=== PATIENT | male | born 1975 | race Hispanic/Latino ===

== ENCOUNTER 2016-08-14 10:19 | Inpatient (IN) | payer OTHER ==
[2016-08-14 11:13] LABS: Hematocrit 49.7 % (35.5-45.6); Hemoglobin 17.5 gm/dl (11.8-15.2); Mean Corpuscular HGB Conc 35 % (32-34); Mean Corpuscular Hemoglobin 32 pg (28-32); Mean Corpuscular Volume 91 fl (84-94); Platelet Count 236 K/mm3 (140-440); Red Blood Count 5.47 M/mm3 (3.65-5.03); Red Cell Distribution Width 13.2 % (13.2-15.2); White Blood Count 21.1 K/mm3 (4.5-11.0)
[2016-08-14 11:26] LABS: Alanine Aminotransferase 56 units/L (7-56); Albumin 4.6 g/dL (3.9-5); Albumin/Globulin Ratio 1.6 %; Alkaline Phosphatase 119 units/L (35-129); Anion Gap 25 mmol/L; BUN/Creatinine Ratio 15.71; Bilirubin,Total 1.2 mg/dL (0.1-1.2); Blood Urea Nitrogen 11 mg/dL (9-20); Calcium 9.4 mg/dL (8.4-10.2); Carbon Dioxide 20 mmol/L (22-30); Glucose 322 mg/dL (75-100); Sodium 137 mmol/L (137-145); Total Protein 7.4 g/dL (6.3-8.2)
[2016-08-14] MEDS ORDERED: MORPHINE IV ONE (11:31)
[2016-08-14] MEDS ORDERED: NACL 0.9% 1000 ML 1,000 ML IV ONE ×3 (11:31→12:59)
[2016-08-14] MEDS ORDERED: ZOFRAN IV ONE (11:35)
--- NOTE | 2016-08-14 11:37 | Emergency Department Report ---
HPI - General Chief Complaint: Abdominal Pain Time Seen by Provider: 08/14/16 11:30 - HPI HPI: This is a 41-year-old male who presents emergency department from home with complaint of left lower quadrant and left-sided abdominal pain has been going on since around 7 AM. The pain is 10 out of 10 in intensity. It is associated with some nausea and vomiting. He has also been having some mild diarrhea. He denies any fever, back pain, dysuria, discharge. The patient has a history of [id number] diabetes and diverticulosis. The patient had some of the symptoms a few days ago and supposedly had a CT of the abdomen and pelvis that was diverticulosis without diverticulitis. His primary care doctor is Dr. Eugene Howard. He just briefly saw a GI doctor for the first time but cannot currently remember the name. No recent travel or sick contacts at home. ED Past Medical Hx - Past Medical History Hx Diabetes: Yes Additional medical history: Diverticulosis - Surgical History Past Surgical History?: No - Social History Smoking Status: Current Every Day Smoker Substance Use Type: None - Medications Home Medications: Home Medications Medication Instructions Recorded Confirmed Last Taken Type Acetaminophen/Codeine [Tylenol 1 tab PO Q6H PRN 08/14/16 08/14/16 08/07/16 History /Codeine # 3 tab] 1 tablet Glipizide/Metformin HCl 1 tab PO BIDAC 08/14/16 08/14/16 08/14/16 History [glipiZIDE-Metformin 5-500 mg] 1 tablet Lisinopril [Zestril TAB] 1 tab PO QHS 08/14/16 08/14/16 08/14/16 History 2.5 Saccharomyces Boulardii [Florastor] 1 cap PO QAM&QHS 08/14/16 08/14/16 08/14/16 History 1cap Simvastatin [Zocor TAB] 20 mg PO QHS 08/14/16 08/14/16 08/13/16 History ED Review of Systems ROS: Stated complaint: ABD PAIN Other details as noted in HPI Comment: All other systems reviewed and negative Constitutional: denies: chills, fever Eyes: denies: eye pain, eye discharge, vision change ENT: denies: ear pain, throat pain Respiratory: denies: cough, shortness of breath, wheezing Cardiovascular: denies: chest pain, palpitations Gastrointestinal: abdominal pain, nausea, vomiting Genitourinary: denies: urgency, dysuria Musculoskeletal: denies: back pain, joint swelling, arthralgia Skin: denies: rash, lesions Neurological: denies: headache, weakness, paresthesias Physical Exam - Physical Exam Vital Signs: Vital Signs 08/14/16 10:39 Temperature 97.7 F Pulse Rate 105 H Respiratory 22 Rate Blood Pressure 125/52 O2 Sat by Pulse 98 Oximetry Physical Exam: GENERAL: The patient is well-developed well-nourished. HEENT: Normocephalic. Atraumatic. Extraocular motions are intact. Patient has moist mucous membranes. Pupils equal reactive to light bilaterally. NECK: Supple. Trachea is midline. CHEST/LUNGS: Clear to auscultation. There is no respiratory distress noted. HEART/CARDIOVASCULAR: Regular. There is no tachycardia. There is no gallop rub or murmur. ABDOMEN: Abdomen is soft there is generalized tenderness to palpation of the abdomen but it appears to be worst in the left upper and left lower quadrants. There is mild guarding but no rebound tenderness. Patient has normal bowel sounds. There is no abdominal distention. SKIN: Skin is warm and dry. NEURO: The patient is awake, alert, and oriented. The patient is cooperative. The patient has no focal neurologic deficits. The patient has normal speech. MUSCULOSKELETAL: There is no tenderness or deformity. There is no limitation range of motion. There is no evidence of acute injury. ED Course Vital Signs 08/14/16 10:39 Temperature 97.7 F Pulse Rate 105 H Respiratory 22 Rate Blood Pressure 125/52 O2 Sat by Pulse 98 Oximetry ED Medical Decision Making - Lab Data Result diagrams: 08/14/16 10:50 08/14/16 10:50 - Radiology Data Radiology results: report reviewed, image reviewed interpreted by me: Abdominal x-ray does not show any acute process. CT of the abdomen and pelvis with IV contrast shows acute pancreatitis. Subtle diffuse hepatic infiltration suspected. Mild. Pancreatic fat stranding with small hypodense fluid along the anterior perirenal fascia extended to the lateral fascia. - Medical Decision Making 41-year-old male presents emergency Department with abdominal pain, nausea vomiting that began this morning. Patient had some recent similar symptoms and was diagnosed with diverticulosis without diverticulitis. Patient's labs show a 22,000 white count. Vitals are stable including being afebrile. Lipase elevated at 1500. Abdominal x-ray does not show any acute process. However CT of the abdomen and pelvis shows acute pancreatitis. Patient given pain control , IV fluid and started on some antibiotics. Will be admitted to hospital. - Differential Diagnosis pancreatitis, diverticulitis, abscess, colitis Critical Care Time: No Critical care attestation.: If time is entered above; I have spent that time in minutes in the direct care of this critically ill patient, excluding procedure time. ED Disposition Clinical Impression: Abdominal pain Qualifiers: Abdominal location: generalized Qualified Code(s): R10.84 - Generalized abdominal pain Nausea & vomiting Qualifiers: Vomiting type: unspecified Vomiting Intractability: non-intractable Qualified Code(s): R11.2 - Nausea with vomiting, unspecified Pancreatitis Qualifiers: Chronicity: acute Pancreatitis type: unspecified pancreatitis type Acute pancreatitis complication: unspecified Qualified Code(s): K85.90 - Acute pancreatitis without necrosis or infection, unspecified Leukocytosis Qualifiers: Leukocytosis type: unspecified Qualified Code(s): D72.829 - Elevated white blood cell count, unspecified Disposition: OP ADMITTED IP TO THIS HOSP Is pt being admited?: Yes Condition: Stable Referrals: PRIMARY CARE, [Primary Care Provider] - 3-5 Days Time of Disposition: 12:42
[2016-08-14] MEDS ORDERED: DILAUDID IV ONE (11:55)
--- NOTE | 2016-08-14 12:12 | XRay Report ---
ABDOMEN RADIOGRAPHS INDICATION: Abdominal pain. COMPARISON: None similar. FINDINGS: Frontal abdominal radiographs demonstrate nonobstructive bowel gas pattern. No focal suspicious calcifications, pneumatosis or pneumoperitoneum. Clear visualized lung bases. Unremarkable bones. CONCLUSION: Normal abdominal radiograph, as described. Thank you for the opportunity to participate in this patient's care.
[2016-08-14 12:21] LABS: Lipase 1420 units/L (13-60)
--- NOTE | 2016-08-14 12:33 | Cat Scan Report ---
CT ABDOMEN AND PELVIS WITH CONTRAST INDICATION: Abdominal pain. Evaluate for diverticulitis. COMPARISON: None similar. FINDINGS: Abdomen and pelvis CT performed following intravenous administration of 100 cc of Omnipaque 300. LUNG BASES: Slight air-filled prominence of the distal esophagus. Right hemidiaphragm slightly elevated. ABDOMEN: Subtle diffuse hepatic infiltration suspected. Mild peripancreatic fat stranding with small hypodense fluid along the anterior pararenal fascia extending to the lateroconal fascia noted. Approximately 2.1 cm presumed splenule in the left upper quadrant, axial image 101, series 2. Otherwise unremarkable liver, spleen, gallbladder, pancreas, adrenals, nonaneurysmal abdominal aorta with few atherosclerotic calcifications, IVC, kidneys and nonobstructive non-opacified bowel. PELVIS: Small prostatic calcifications. Grossly unremarkable seminal vesicles and non-opacified urinary bladder and the rectosigmoid. No free fluid or significant adenopathy. Fat-containing 1.8 cm left inguinal hernia proximally, axial image 371. Unremarkable bones. CONCLUSION: Acute pancreatitis and few other findings, as described. Thank you for the opportunity to participate in this patient's care.
[2016-08-14] MEDS ORDERED: ZOSYN/NS 4.5GM/100ML 4.5 GM/100 ML VIAL IV ONE (12:43)
[2016-08-14 12:49] LABS: Basophils % (Manual) 0 % (0.0-1.8); Blastocytes % (Manual) 0 %; Eosinophils % (Manual) 0 % (0.0-4.3)
[2016-08-14 12:50] LABS: Diff Status Complete; Platelet Estimate Consistent w Auto
--- NOTE | 2016-08-14 12:50 | Admit Criteria Form ---
Admission Criteria Documentation: PANCREATITIS Clinical Indications for Admission to Inpatient Care (Place 'X' for any and all applicable criteria): Admission is indicated for 1 or more of the following (1)(2)(3)(4): [X ]I. Acute pancreatitis[A] as indicated by 2 or MORE of the following: [ X]a) Abdominal pain (eg, epigastric, left upper quadrant) [ X]b) Serum amylase or serum lipase greater than 3 times the upper limit of normal [ ]c) Characteristic findings from abdominal imaging (eg, pancreatic inflammation, pancreatic necrosis, peripancreatic fluid collection)[B] [ ]II. Pancreatitis (acute or chronic ) requiring inpatient care as indicated by 1 or more of the following [ ]a) Inability to maintain oral hydration Hypoxemia [ ]b) Evidence of infection (eg, fever, peripancreatic abscess) [ ]c) Severe pain requiring acute inpatient management [ ]d) Hemodynamic instability [ ]e) Hypoxemia [ ]f) Acute renal failure [ ]g) Severe electrolyte abnormalities Extended stay beyond goal length of stay may be needed for (1)(11) [ ]a) Severe acute pancreatitis (10)(19) [ ]b) Persistent symptoms, ascites, or pleural effusion [ ]c) Abdominal compartment syndrome (10) [ ]d) Late complications [ ]e) Gallstones in gallbladder [ ]f) Acute renal failure (27) The original [employer] content created by [employer] has been revised. The portions of the content which have been revised are identified through the use of italic text or in bold,and [facility] has neither reviewed nor approved the modified material.All other unmodified content is copyright [employer]. Please see references footnoted in the original [employer] edition 2016 Admission Criteria Met: Yes
--- NOTE | 2016-08-14 12:56 | History and Physical Report ---
History of Present Illness Chief complaint: My stomach hurts History of present illness: 41 YO Male with DM, Diverticulosis, Nicotine Dependence presents to ED for evaluation. Pt states that he has experienced left-sided abdominal pain for the past day with worsening symptoms since 0700 hrs. Pt states that the pain is 10/ 10, Constant, nonradiating, Not relieved with rest, or worse with movement, is associated with nausea and vomiting, and two loose stools. Pt denies fever, chills, CP, Palpitations, drug use, medication noncompliance, BRBPR, Hematemesis , trauma, or recent ill contacts. Past History Past Medical History: diabetes, hypertension Past Surgical History: No surgical history, Other (reviewed) Social history: , smoking. denies: alcohol abuse, prescription drug abuse Family history: diabetes, hypertension Medications and Allergies Allergies Allergy/AdvReac Type Severity Reaction Status Date / Time No Known Allergies Allergy Unverified 08/14/16 10:39 Home Medications Medication Instructions Recorded Confirmed Last Taken Type Acetaminophen/Codeine [Tylenol 1 tab PO Q6H PRN 08/14/16 08/14/16 08/07/16 History /Codeine # 3 tab] 1 tablet Glipizide/Metformin HCl 1 tab PO BIDAC 08/14/16 08/14/16 08/14/16 History [glipiZIDE-Metformin 5-500 mg] 1 tablet Lisinopril [Zestril TAB] 1 tab PO QHS 08/14/16 08/14/16 08/14/16 History 2.5 Saccharomyces Boulardii [Florastor] 1 cap PO QAM&QHS 08/14/16 08/14/16 08/14/16 History 1cap Simvastatin [Zocor TAB] 20 mg PO QHS 08/14/16 08/14/16 08/13/16 History Active Meds: Active Medications Piperacillin Sod/Tazobactam Sod (Zosyn/Ns 4.5gm/100ml) 4.5 gm in 100 mls @ 200 mls/hr IV ONCE ONE Stop: 08/14/16 13:12 Sodium Chloride (Nacl 0.9% 1000 Ml) 1,000 mls @ 999 mls/hr IV BOLUS ONE Stop: 08/14/16 13:48 Review of Systems All systems: negative Gastrointestinal: abdominal pain, nausea, vomiting, diarrhea Exam - Constitutional Vitals: Temp Pulse Resp BP Pulse Ox 97.7 F 105 H 22 169/126 99 08/14/16 10:39 08/14/16 10:39 08/14/16 11:35 08/14/16 11:15 08/14/16 11:15 General appearance: Present: mild distress, well-nourished - EENT Eyes: Present: PERRL ENT: hearing intact, clear oral mucosa - Neck Neck: Present: supple, normal ROM - Respiratory Respiratory effort: normal Respiratory: bilateral: CTA - Cardiovascular Heart Sounds: Present: S1 & S2. Absent: rub, click - Extremities Extremities: pulses symmetrical, No edema Peripheral Pulses: within normal limits - Abdominal General gastrointestinal: Present: soft, non-tender, non-distended, normal bowel sounds Male genitourinary: Present: normal - Integumentary Integumentary: Present: clear, warm, dry - Musculoskeletal Musculoskeletal: gait normal, strength equal bilaterally - Psychiatric Psychiatric: appropriate mood/affect, intact judgment & insight - Neurologic Neurologic: CNII-XII intact, moves all extremities Results - Labs CBC & Chem 7: 08/14/16 10:50 08/14/16 10:50 Labs: Abnormal lab results 08/14/16 08/14/16 08/14/16 Range/Units 10:49 10:50 10:50 WBC 21.1 H (4.5-11.0) K/mm3 RBC 5.47 H (3.65-5.03) M/mm3 Hgb 17.5 H (11.8-15.2) gm/dl Hct 49.7 H (35.5-45.6) % MCHC 35 H (32-34) % Seg Neuts % (Manual) 84.0 H (40.0-70.0) % Lymphocytes % (Manual) 10.0 L (13.4-35.0) % Seg Neutrophils # Man 17.7 H (1.8-7.7) K/mm3 Monocytes # (Manual) 1.3 H (0.0-0.8) K/mm3 Chloride 96.0 L (98-107) mmol/L Carbon Dioxide 20 L (22-30) mmol/L Creatinine 0.7 L (0.8-1.5) mg/dL Glucose 322 H (75-100) mg/dL POC Glucose 282 H (70-105) Lipase 1420 H (13-60) units/L 08/14/16 Range/Units 12:45 WBC (4.5-11.0) K/mm3 RBC (3.65-5.03) M/mm3 Hgb (11.8-15.2) gm/dl Hct (35.5-45.6) % MCHC (32-34) % Seg Neuts % (Manual) (40.0-70.0) % Lymphocytes % (Manual) (13.4-35.0) % Seg Neutrophils # Man (1.8-7.7) K/mm3 Monocytes # (Manual) (0.0-0.8) K/mm3 Chloride (98-107) mmol/L Carbon Dioxide (22-30) mmol/L Creatinine (0.8-1.5) mg/dL Glucose (75-100) mg/dL POC Glucose 284 H (70-105) Lipase (13-60) units/L Assessment and Plan - Patient Problems (1) Sepsis Current Visit: Yes Status: Acute Qualifiers: Sepsis type: S Plan to address problem: IV abx, IVF, supportive care, serial lactate levels, treat acute pancreatitis. (2) Pancreatitis Current Visit: Yes Status: Acute Qualifiers: Chronicity: acute Pancreatitis type: unspecified pancreatitis type Acute pancreatitis complication: unspecified Qualified Code(s): K85.90 - Acute pancreatitis without necrosis or infection, unspecified Plan to address problem: Bowel rest, IVF, supportive care, monitor uop q shift, pain control CTSI: 5, Moderate Acute Pancreatitis, (3) Nicotine dependence Current Visit: Yes Status: Acute Qualifiers: Nicotine product type: N Substance use status: S Plan to address problem: Pt counseled, Pt refused to pick quit date. (4) Diabetes Current Visit: Yes Status: Acute Qualifiers: Diabetes mellitus type: D Diabetes mellitus complication status: D Diabetes mellitus complication detail: D Diabetic retinopathy severity: D Proliferative retinopathy type: P Diabetes mellitus macular edema: D Diabetes mellitus snf insulin use: D Laterality: L Chronic kidney disease stage: C Plan to address problem: ADA diet, insulin, accu check (5) DVT prophylaxis Current Visit: Yes Status: Acute
[2016-08-14] MEDS ORDERED: DULCOLAX PR PRN (12:59)
[2016-08-14] MEDS ORDERED: MILK OF MAGNESIA PO PRN (12:59)
[2016-08-14] MEDS ORDERED: NACL 0.9% 1000 ML IV ONE (12:59)
[2016-08-14] MEDS ORDERED: ZOFRAN IV PRN (12:59)
[2016-08-14] MEDS ORDERED: DUONEB 0.5 MG-3 MG/3 ML SOLN IH PRN (12:59)
[2016-08-14] MEDS ORDERED: TYLENOL PO PRN (12:59)
[2016-08-14] MEDS ORDERED: VANCOMYCIN/NS 1 GM/250 ML 1 GM/250 ML BAG IV ONE ×2 (13:02→20:00)
[2016-08-14] MEDS ORDERED: SACCHAROMYCES BOULARDII PO SCH (13:15)
[2016-08-14] MEDS ORDERED: ZOFRAN ONE (13:38)
[2016-08-14] MEDS ORDERED: MORPHINE ONE (13:39)
[2016-08-14 13:47] LABS: Bilirubin,Urine NEG (Negative); Blood,Urine NEG (Negative); Ketones,Urine 20 mg/dL (Negative); Leukocyte Esterase,Urine NEG (Negative); Mucus,Urine FEW /HPF; Nitrite,Urine NEG (Negative); Protein,Urine <15 mg/dL mg/dL (Negative); Urobilinogen,Urine < 2.0 mg/dL (<2.0); WBC,Urine < 1.0 /HPF (0.0-6.0)
[2016-08-14] MEDS: MORPHINE IV PRN ×3 (14:14→21:04)
[2016-08-14] MEDS ORDERED: NACL 0.9% 1000 ML 1,000 ML ONE (14:15)
[2016-08-14] MEDS: ZOSYN/NS 4.5GM/100ML 4.5 GM/100 ML VIAL IV SCH (17:26)
[2016-08-14] MEDS: ZOFRAN IV PRN (21:04)
[2016-08-14] MEDS ORDERED: LISINOPRIL PO SCH (22:00)
[2016-08-15] MEDS: FLORANEX PO SCH ×2 (00:20→11:06)
[2016-08-15] MEDS: ZESTRIL PO SCH (00:24)
[2016-08-15] MEDS: ZOCOR PO SCH (00:25)
[2016-08-15] MEDS: MORPHINE IV PRN ×6 (00:48→22:56)
[2016-08-15] MEDS: ZOSYN/NS 4.5GM/100ML 4.5 GM/100 ML VIAL IV SCH ×5 (00:50→23:03)
[2016-08-15] MEDS: NACL 0.9% IV SCH ×2 (00:53→23:06)
[2016-08-15] MEDS: ZOFRAN IV PRN ×4 (02:10→23:01)
[2016-08-15 05:45] LABS: Basophils % (Auto) 0.2 % (0.0-1.8); Eosinophils % (Auto) 0.1 % (0.0-4.3); Hematocrit 44.9 % (35.5-45.6); Hemoglobin 15.6 gm/dl (11.8-15.2); Mean Corpuscular HGB Conc 35 % (32-34); Mean Corpuscular Hemoglobin 32 pg (28-32); Mean Corpuscular Volume 91 fl (84-94); Platelet Count 159 K/mm3 (140-440); Red Blood Count 4.94 M/mm3 (3.65-5.03); Red Cell Distribution Width 13.2 % (13.2-15.2); White Blood Count 13.9 K/mm3 (4.5-11.0)
[2016-08-15 06:16] LABS: Alanine Aminotransferase 35 units/L (7-56); Albumin 3.7 g/dL (3.9-5); Albumin/Globulin Ratio 1.5 %; Alkaline Phosphatase 87 units/L (35-129); Anion Gap 18 mmol/L; Bilirubin,Total 1.8 mg/dL (0.1-1.2); Blood Urea Nitrogen 9 mg/dL (9-20); Calcium 8.1 mg/dL (8.4-10.2); Carbon Dioxide 23 mmol/L (22-30); Chloride 102.5 mmol/L (98-107); Glucose 209 mg/dL (75-100); Potassium 3.9 mmol/L (3.6-5.0); Sodium 140 mmol/L (137-145); Total Protein 6.1 g/dL (6.3-8.2)
--- NOTE | 2016-08-15 09:59 | Progress Note ---
Assessment and Plan Assessment and plan: Sepsis. Patient meets criteria given the elevated lactic acid and leukocytosis. Continue IV antibiotics, IV fluid and supportive care. Follow blood cultures and trend lactic acid levels. Acute pancreatitis. Continue bowel rest, IV fluid hydration and supportive care. GI consultation. Trend lipase levels. Diabetes mellitus type 2. Continue Accu-Cheks and sliding scale insulin. Nicotine dependence. Patient has been counseled. DVT prophylaxis. History Interval history: Patient with some nausea and vomiting this morning. Also, patient was noted to have moderate epigastric pain with no significant improvement. Hospitalist Physical - Constitutional Vitals: Temp Pulse Resp BP Pulse Ox 99.0 F 73 18 158/83 96 08/15/16 08:00 08/15/16 08:00 08/15/16 08:00 08/15/16 08:00 08/15/16 09:10 General appearance: Present: mild distress, well-nourished - EENT Eyes: Present: PERRL, EOM intact ENT: hearing intact, clear oral mucosa, dentition normal - Neck Neck: Present: supple, normal ROM - Respiratory Respiratory effort: normal Respiratory: bilateral: CTA - Cardiovascular Rhythm: regular Heart Sounds: Present: S1 & S2. Absent: gallop, rub - Extremities Extremities: no ischemia, No edema, Full ROM - Abdominal General gastrointestinal: soft, non-tender, non-distended, normal bowel sounds Localized gastrointestinal: tender: epigastric periumbilical (moderate) - Integumentary Integumentary: Present: clear, warm, dry - Neurologic Neurologic: CNII-XII intact, moves all extremities Results - Labs CBC & Chem 7: 08/15/16 05:02 08/15/16 05:02 Labs: Laboratory Last Values WBC 13.9 K/mm3 (4.5-11.0) H 08/15/16 05:02 RBC 4.94 M/mm3 (3.65-5.03) 08/15/16 05:02 Hgb 15.6 gm/dl (11.8-15.2) H 08/15/16 05:02 Hct 44.9 % (35.5-45.6) 08/15/16 05:02 MCV 91 fl (84-94) 08/15/16 05:02 MCH 32 pg (28-32) 08/15/16 05:02 MCHC 35 % (32-34) H 08/15/16 05:02 RDW 13.2 % (13.2-15.2) 08/15/16 05:02 Plt Count 159 K/mm3 (140-440) 08/15/16 05:02 Lymph % (Auto) 6.5 % (13.4-35.0) L 08/15/16 05:02 [place] % (Auto) 6.3 % (0.0-7.3) 08/15/16 05:02 Eos % (Auto) 0.1 % (0.0-4.3) 08/15/16 05:02 Baso % (Auto) 0.2 % (0.0-1.8) 08/15/16 05:02 Lymph # 0.9 K/mm3 (1.2-5.4) L 08/15/16 05:02 [place] # 0.9 K/mm3 (0.0-0.8) H 08/15/16 05:02 Eos # 0.0 K/mm3 (0.0-0.4) 08/15/16 05:02 Baso # 0.0 K/mm3 (0.0-0.1) 08/15/16 05:02 Add Manual Diff Complete 08/14/16 10:50 Total Counted 100 08/14/16 10:50 Seg Neutrophils % 86.9 % (40.0-70.0) H 08/15/16 05:02 Seg Neuts % (Manual) 84.0 % (40.0-70.0) H 08/14/16 10:50 Band Neutrophils % 0 % 08/14/16 10:50 Lymphocytes % (Manual) 10.0 % (13.4-35.0) L 08/14/16 10:50 Reactive Lymphs % (Man) 0 % 08/14/16 10:50 Monocytes % (Manual) 6.0 % (0.0-7.3) 08/14/16 10:50 Eosinophils % (Manual) 0 % (0.0-4.3) 08/14/16 10:50 Basophils % (Manual) 0 % (0.0-1.8) 08/14/16 10:50 Metamyelocytes % 0 % 08/14/16 10:50 Myelocytes % 0 % 08/14/16 10:50 Promyelocytes % 0 % 08/14/16 10:50 Blast Cells % 0 % 08/14/16 10:50 Nucleated RBC % Not Reportable 08/14/16 10:50 Seg Neutrophils # 12.1 K/mm3 (1.8-7.7) H 08/15/16 05:02 Seg Neutrophils # Man 17.7 K/mm3 (1.8-7.7) H 08/14/16 10:50 Band Neutrophils # 0.0 K/mm3 08/14/16 10:50 Lymphocytes # (Manual) 2.1 K/mm3 (1.2-5.4) 08/14/16 10:50 Abs React Lymphs (Man) 0.0 K/mm3 08/14/16 10:50 Monocytes # (Manual) 1.3 K/mm3 (0.0-0.8) H 08/14/16 10:50 Eosinophils # (Manual) 0.0 K/mm3 (0.0-0.4) 08/14/16 10:50 Basophils # (Manual) 0.0 K/mm3 (0.0-0.1) 08/14/16 10:50 Metamyelocytes # 0.0 K/mm3 08/14/16 10:50 Myelocytes # 0.0 K/mm3 08/14/16 10:50 Promyelocytes # 0.0 K/mm3 08/14/16 10:50 Blast Cells # 0.0 K/mm3 08/14/16 10:50 WBC Morphology Not Reportable 08/14/16 10:50 Hypersegmented Neuts Not Reportable 08/14/16 10:50 Hyposegmented Neuts Not Reportable 08/14/16 10:50 Hypogranular Neuts Not Reportable 08/14/16 10:50 Smudge Cells Not Reportable 08/14/16 10:50 Toxic Granulation Not Reportable 08/14/16 10:50 Toxic Vacuolation Not Reportable 08/14/16 10:50 Dohle Bodies Not Reportable 08/14/16 10:50 [place]uet Anomaly Not Reportable 08/14/16 10:50 Konstantin Rods Not Reportable 08/14/16 10:50 Platelet Estimate Consistent w auto 08/14/16 10:50 Clumped Platelets Not Reportable 08/14/16 10:50 Plt Clumps, EDTA Not Reportable 08/14/16 10:50 Large Platelets Not Reportable 08/14/16 10:50 Giant Platelets Not Reportable 08/14/16 10:50 Platelet Satelliting Not Reportable 08/14/16 10:50 Plt Morphology Comment Not Reportable 08/14/16 10:50 RBC Morphology Not Reportable 08/14/16 10:50 Dimorphic RBCs Not Reportable 08/14/16 10:50 Polychromasia Not Reportable 08/14/16 10:50 Hypochromasia Not Reportable 08/14/16 10:50 Poikilocytosis Not Reportable 08/14/16 10:50 Anisocytosis Not Reportable 08/14/16 10:50 Microcytosis Not Reportable 08/14/16 10:50 Macrocytosis Not Reportable 08/14/16 10:50 Spherocytes Not Reportable 08/14/16 10:50 Pappenheimer Bodies Not Reportable 08/14/16 10:50 Sickle Cells Not Reportable 08/14/16 10:50 Target Cells Not Reportable 08/14/16 10:50 Tear Drop Cells Not Reportable 08/14/16 10:50 Ovalocytes Not Reportable 08/14/16 10:50 Helmet Cells Not Reportable 08/14/16 10:50 [place] Bodies Not Reportable 08/14/16 10:50 [place] Rings Not Reportable 08/14/16 10:50 [place] Cells Not Reportable 08/14/16 10:50 Bite Cells Not Reportable 08/14/16 10:50 Crenated Cell Not Reportable 08/14/16 10:50 Elliptocytes Not Reportable 08/14/16 10:50 Acanthocytes (Spur) Not Reportable 08/14/16 10:50 Rouleaux Not Reportable 08/14/16 10:50 Hemoglobin C Crystals Not Reportable 08/14/16 10:50 Schistocytes Not Reportable 08/14/16 10:50 Malaria parasites Not Reportable 08/14/16 10:50 [place] Bodies Not Reportable 08/14/16 10:50 Hem Pathologist Commnt No 08/14/16 10:50 Sodium 140 mmol/L (137-145) 08/15/16 05:02 Potassium 3.9 mmol/L (3.6-5.0) 08/15/16 05:02 Chloride 102.5 mmol/L (98-107) 08/15/16 05:02 Carbon Dioxide 23 mmol/L (22-30) 08/15/16 05:02 Anion Gap 18 mmol/L 08/15/16 05:02 BUN 9 mg/dL (9-20) 08/15/16 05:02 Creatinine 0.6 mg/dL (0.8-1.5) L 08/15/16 05:02 Estimated GFR > 60 ml/min 08/15/16 05:02 BUN/Creatinine Ratio 15.00 % 08/15/16 05:02 Glucose 209 mg/dL (75-100) H 08/15/16 05:02 POC Glucose 171 (70-105) H 08/15/16 05:25 Lactic Acid 2.1 mmol/L (0.7-2.0) H* 08/14/16 16:48 Calcium 8.1 mg/dL (8.4-10.2) L 08/15/16 05:02 Total Bilirubin 1.8 mg/dL (0.1-1.2) H 08/15/16 05:02 AST 18 units/L (5-40) 08/15/16 05:02 ALT 35 units/L (7-56) 08/15/16 05:02 Alkaline Phosphatase 87 units/L (35-129) 08/15/16 05:02 Total Protein 6.1 g/dL (6.3-8.2) L 08/15/16 05:02 Albumin 3.7 g/dL (3.9-5) L 08/15/16 05:02 Albumin/Globulin Ratio 1.5 % 08/15/16 05:02 Lipase 1420 units/L (13-60) H 08/14/16 10:50 Urine Color Yellow (Yellow) 08/14/16 13:32 Urine Turbidity Clear (Clear) 08/14/16 13:32 Urine pH 5.0 (5.0-7.0) 08/14/16 13:32 Ur Specific [place] 1.059 (1.003-1.030) H 08/14/16 13:32 Urine Protein <15 mg/dl mg/dL (Negative) 08/14/16 13:32 Urine Glucose (UA) >=500 mg/dL (Negative) 08/14/16 13:32 Urine Ketones 20 mg/dL (Negative) 08/14/16 13:32 Urine Blood Neg (Negative) 08/14/16 13:32 Urine Nitrite Neg (Negative) 08/14/16 13:32 Urine Bilirubin Neg (Negative) 08/14/16 13:32 Urine Urobilinogen < 2.0 mg/dL (<2.0) 08/14/16 13:32 Ur Leukocyte Esterase Neg (Negative) 08/14/16 13:32 Urine WBC (Auto) < 1.0 /HPF (0.0-6.0) 08/14/16 13:32 Urine RBC (Auto) 4.0 /HPF (0.0-6.0) 08/14/16 13:32 U Epithel Cells (Auto) 1.0 /HPF (0-13.0) 08/14/16 13:32 Urine Mucus Few /HPF 08/14/16 13:32
[2016-08-15] MEDS ORDERED: MORPHINE IV ONE (10:46)
[2016-08-15] MEDS ORDERED: PROVENTIL IH PRN (19:00)
[2016-08-16] MEDS: ZOCOR PO SCH ×2 (00:19→21:37)
[2016-08-16] MEDS: ZESTRIL PO SCH ×2 (00:19→21:42)
[2016-08-16] MEDS: FLORANEX PO SCH ×3 (00:19→21:36)
--- NOTE | 2016-08-16 02:51 | Consultation ---
REFERRING PHYSICIAN: Vasile Lisa MD. INDICATION: Abdominal pain. HISTORY OF PRESENT ILLNESS: The patient is a 41-year-old white male with a history of diabetes, diverticulosis, nicotine dependence, who is being seen by GI for abdominal pain. The patient reports abdominal pain, have been going on for 1-2 weeks, but worse over the last 24 hours associated with fevers, chills, nausea, and vomiting. The patient reports some worsening with eating. He reports no history of problems as in the past. He reports no lower GI symptoms including diarrhea, constipation, or rectal bleeding. The patient subsequently came to Emergency Room, was noted to have an increased lipase and CT scan consistent with pancreatitis. He was subsequently admitted and GI called for evaluation. PAST MEDICAL HISTORY: 1. Diabetes. 2. Hypertension. MEDICATIONS: See chart. ALLERGIES: No known drug allergies. SOCIAL HISTORY: Reports social alcohol. Denies tobacco or IV drug abuse. FAMILY HISTORY: Negative for colon cancer. REVIEW OF SYSTEMS: GENERAL: Reports mild weakness. HEENT: No visual complaints or tinnitus. PULMONARY: No shortness of breath. CARDIOVASCULAR: No chest pain. GASTROINTESTINAL: Reports abdominal pain. All points of 13-point review of systems otherwise negative. PHYSICAL EXAMINATION: VITAL SIGNS: Temperature 98.5, pulse 99, respirations 18, blood pressure 151/89. GENERAL: Fairly nourished male in no acute distress. HEENT: Pupils equal, round, reactive to light and accommodation. Extraocular movements intact. PULMONARY: Clear to auscultation bilaterally. CARDIOVASCULAR: Regular rate and rhythm. Normal S1, S2. ABDOMEN: Positive bowel sounds. Soft. Mild discomfort. No guarding, no rebound. SKIN: No obvious rashes. LABORATORY DATA: Pertinent for white count of 13.9, hemoglobin and hematocrit of 15.6 and 44.9, platelet count of 159. Chem-7 within normal limits. LFTs within normal limits. CT scan shows consistent with mild pancreatitis. ASSESSMENT AND PLAN: A 41-year-old male presents for abdominal pain with noted increased lipase and a CT scan consistent with pancreatitis. The patient denies a history of alcohol abuse. Denies any other risk factors. Management as noted below. PLAN: 1. The patient's pancreatitis management will include IV fluids, pain medications, and antiemetics. 2. Right upper quadrant ultrasound. 3. Pancreatitis related labs including CRP as well as workup for etiologies including lipid panel. 4. Advance diet based on progress. 5. We will follow, further recommendation based on progress. JOB# [id number] CAB/NTS
[2016-08-16] MEDS: MORPHINE IV PRN ×5 (04:22→21:37)
[2016-08-16 04:44] LABS: Basophils % (Auto) 0.1 % (0.0-1.8); Eosinophils % (Auto) 0.1 % (0.0-4.3); Hematocrit 44.5 % (35.5-45.6); Hemoglobin 15.3 gm/dl (11.8-15.2); Mean Corpuscular HGB Conc 34 % (32-34); Mean Corpuscular Hemoglobin 31 pg (28-32); Mean Corpuscular Volume 91 fl (84-94); Platelet Count 142 K/mm3 (140-440); Red Blood Count 4.87 M/mm3 (3.65-5.03); Red Cell Distribution Width 13.2 % (13.2-15.2); White Blood Count 15.7 K/mm3 (4.5-11.0)
[2016-08-16 04:58] LABS: Anion Gap 22 mmol/L; Blood Urea Nitrogen 10 mg/dL (9-20); Calcium 8.1 mg/dL (8.4-10.2); Carbon Dioxide 17 mmol/L (22-30); Chloride 99.6 mmol/L (98-107); Glucose 165 mg/dL (75-100); Potassium 3.7 mmol/L (3.6-5.0); Sodium 135 mmol/L (137-145)
[2016-08-16] MEDS: NACL 0.9% IV SCH ×3 (05:17→21:41)
[2016-08-16] MEDS: ZOSYN/NS 4.5GM/100ML 4.5 GM/100 ML VIAL IV SCH ×3 (05:17→17:32)
[2016-08-16 07:58] LABS: C-Reactive Protein 42.5 mg/dL (0.00-1.30)
--- NOTE | 2016-08-16 09:08 | Ultrasound Report ---
ULTRASOUND ABDOMEN LIMITED INDICATION: Evaluate for gallbladder disease. COMPARISON: 08/14/2016 CT. FINDINGS: Right upper quadrant sonography, somewhat limited due to patient's body habitus and bowel gas, suggests diffusely echogenic liver with grossly preserved contours. No definite focal suspicious lesion or biliary dilatation. No gallstones or pericholecystic fluid. Gallbladder wall thickness is 2 mm. Common bile duct is 5 mm. Minimal ascites surrounds the right hepatic lobe tip inferiorly. Pancreas, abdominal aorta and IVC not well visualized. Nonhydronephrotic right kidney, 10.8 x 5.5 x 6.3 cm with cortical thickness of 1.7 cm. CONCLUSION: Fatty liver and minimal ascites on this technically limited exam in this patient with known acute pancreatitis. Please correlate. Thank you for the opportunity to participate in this patient's care.
--- NOTE | 2016-08-16 11:34 | Gastroenterology Progress Note ---
Assessment and Plan GI: pancreatitis unclear etiology - pt still with pain and given high CRP would not advance diet at this time - await etiology workup including ultrasound - continue conservative management - will follow Subjective Date of service: 08/16/16 Interval history: pt reports abdominal pain and discomfort. Reports overall improved Objective - Constitutional Vitals: Temp Pulse Resp BP Pulse Ox 97.9 F 109 H 20 115/69 95 08/16/16 08:00 08/16/16 08:00 08/16/16 08:00 08/16/16 08:00 08/16/16 08:00 General appearance: no acute distress - Respiratory Respiratory: bilateral: CTA - Cardiovascular Rhythm: regular Heart Sounds: Present: S1 & S2 - Gastrointestinal General gastrointestinal: Present: soft, non-tender, non-distended - Labs CBC & Chem 7: 08/16/16 04:07 08/16/16 04:07 Labs: Laboratory Results - last 24 hr 08/15/16 08/15/16 08/15/16 11:25 19:26 21:23 WBC RBC Hgb Hct MCV MCH MCHC RDW Plt Count Lymph % (Auto) [place] % (Auto) Eos % (Auto) Baso % (Auto) Lymph # [place] # Eos # Baso # Seg Neutrophils % Seg Neutrophils # Sodium Potassium Chloride Carbon Dioxide Anion Gap BUN Creatinine Estimated GFR BUN/Creatinine Ratio Glucose POC Glucose 180 H 152 H 149 H Calcium C-Reactive Protein Lipase 08/16/16 08/16/16 08/16/16 04:07 04:07 06:17 WBC 15.7 H RBC 4.87 Hgb 15.3 H Hct 44.5 MCV 91 MCH 31 MCHC 34 RDW 13.2 Plt Count 142 Lymph % (Auto) 4.6 L [place] % (Auto) 8.3 H Eos % (Auto) 0.1 Baso % (Auto) 0.1 Lymph # 0.7 L [place] # 1.3 H Eos # 0.0 Baso # 0.0 Seg Neutrophils % 86.9 H Seg Neutrophils # 13.7 H Sodium 135 L Potassium 3.7 Chloride 99.6 Carbon Dioxide 17 L Anion Gap 22 BUN 10 Creatinine 0.5 L Estimated GFR > 60 BUN/Creatinine Ratio 20.00 Glucose 165 H POC Glucose 155 H Calcium 8.1 L C-Reactive Protein Lipase 08/16/16 08/16/16 06:37 07:45 WBC RBC Hgb Hct MCV MCH MCHC RDW Plt Count Lymph % (Auto) [place] % (Auto) Eos % (Auto) Baso % (Auto) Lymph # [place] # Eos # Baso # Seg Neutrophils % Seg Neutrophils # Sodium Potassium Chloride Carbon Dioxide Anion Gap BUN Creatinine Estimated GFR BUN/Creatinine Ratio Glucose POC Glucose 177 H Calcium C-Reactive Protein 42.50 H Lipase 101 H
[2016-08-16] MEDS: ZOFRAN IV PRN ×2 (13:01→21:37)
--- NOTE | 2016-08-16 13:32 | Progress Note ---
Assessment and Plan Assessment and plan: Patient is 41-year-old man with a history of tobacco dependency and diabetes mellitus who presented with abdominal pain with nausea vomiting. CT abdomen and pelvis with contrast showed pancreatitis. -Acute pancreatitis: Continue IV fluids and pain management, GI as following holding off feedings -No sepsis was present on admission without infection/source, he did have Sirs present on admission due to above -Tobacco dependency: Counseling -Type 2 diabetes mellitus:ssi ordered History Interval history: Patient seen and examined. Follow up on abdominal pain which is still present in epigastric region but less severe than yesterday. Overnight uneventful. No cp, sob, n/v or severe headaches. Imaging, old records, testing, labs, nursing notes reviewed. Plan discussed with patient. Hospitalist Physical - Physical exam Narrative exam: GEN: WDWN, NAD, AWAKE, ALERT, ORIENTATED 3 HEENT: NCAT, PERRL, EOMI, OP CLEAR NECK: SUPPLE, NO THYROMEGALY, NO JVD, NO LAD CVS: RRR, NORMAL S1S2 LUNGS/CHEST: CTA B, NORMAL CHEST EXPANSION B, GOOD AIR ENTRY B ABD: SOFT, EPIGASTRIC TENDERNESS WITHOUT DISTENTION, GBS, NO REBOUND OR GUARDING EXT/SKIN: NO SIGNIFICANT EDEMA OR RASH MSK: FROM X 4 EXTREMITIES NEURO: CN 2-12 GROSSLY INTACT, NO new FOCAL DEFICITS PSY: CALM - Constitutional Vitals: Temp Pulse Resp BP Pulse Ox 99.5 F 104 H 20 125/78 95 08/16/16 12:23 08/16/16 12:23 08/16/16 12:23 08/16/16 12:23 08/16/16 12:23 General appearance: Present: well-nourished Results - Labs CBC & Chem 7: 08/16/16 04:07 08/16/16 04:07 Labs: Laboratory Last Values WBC 15.7 K/mm3 (4.5-11.0) H 08/16/16 04:07 RBC 4.87 M/mm3 (3.65-5.03) 08/16/16 04:07 Hgb 15.3 gm/dl (11.8-15.2) H 08/16/16 04:07 Hct 44.5 % (35.5-45.6) 08/16/16 04:07 MCV 91 fl (84-94) 08/16/16 04:07 MCH 31 pg (28-32) 08/16/16 04:07 MCHC 34 % (32-34) 08/16/16 04:07 RDW 13.2 % (13.2-15.2) 08/16/16 04:07 Plt Count 142 K/mm3 (140-440) 08/16/16 04:07 Lymph % (Auto) 4.6 % (13.4-35.0) L 08/16/16 04:07 [place] % (Auto) 8.3 % (0.0-7.3) H 08/16/16 04:07 Eos % (Auto) 0.1 % (0.0-4.3) 08/16/16 04:07 Baso % (Auto) 0.1 % (0.0-1.8) 08/16/16 04:07 Lymph # 0.7 K/mm3 (1.2-5.4) L 08/16/16 04:07 [place] # 1.3 K/mm3 (0.0-0.8) H 08/16/16 04:07 Eos # 0.0 K/mm3 (0.0-0.4) 08/16/16 04:07 Baso # 0.0 K/mm3 (0.0-0.1) 08/16/16 04:07 Add Manual Diff Complete 08/14/16 10:50 Total Counted 100 08/14/16 10:50 Seg Neutrophils % 86.9 % (40.0-70.0) H 08/16/16 04:07 Seg Neuts % (Manual) 84.0 % (40.0-70.0) H 08/14/16 10:50 Band Neutrophils % 0 % 08/14/16 10:50 Lymphocytes % (Manual) 10.0 % (13.4-35.0) L 08/14/16 10:50 Reactive Lymphs % (Man) 0 % 08/14/16 10:50 Monocytes % (Manual) 6.0 % (0.0-7.3) 08/14/16 10:50 Eosinophils % (Manual) 0 % (0.0-4.3) 08/14/16 10:50 Basophils % (Manual) 0 % (0.0-1.8) 08/14/16 10:50 Metamyelocytes % 0 % 08/14/16 10:50 Myelocytes % 0 % 08/14/16 10:50 Promyelocytes % 0 % 08/14/16 10:50 Blast Cells % 0 % 08/14/16 10:50 Nucleated RBC % Not Reportable 08/14/16 10:50 Seg Neutrophils # 13.7 K/mm3 (1.8-7.7) H 08/16/16 04:07 Seg Neutrophils # Man 17.7 K/mm3 (1.8-7.7) H 08/14/16 10:50 Band Neutrophils # 0.0 K/mm3 08/14/16 10:50 Lymphocytes # (Manual) 2.1 K/mm3 (1.2-5.4) 08/14/16 10:50 Abs React Lymphs (Man) 0.0 K/mm3 08/14/16 10:50 Monocytes # (Manual) 1.3 K/mm3 (0.0-0.8) H 08/14/16 10:50 Eosinophils # (Manual) 0.0 K/mm3 (0.0-0.4) 08/14/16 10:50 Basophils # (Manual) 0.0 K/mm3 (0.0-0.1) 08/14/16 10:50 Metamyelocytes # 0.0 K/mm3 08/14/16 10:50 Myelocytes # 0.0 K/mm3 08/14/16 10:50 Promyelocytes # 0.0 K/mm3 08/14/16 10:50 Blast Cells # 0.0 K/mm3 08/14/16 10:50 WBC Morphology Not Reportable 08/14/16 10:50 Hypersegmented Neuts Not Reportable 08/14/16 10:50 Hyposegmented Neuts Not Reportable 08/14/16 10:50 Hypogranular Neuts Not Reportable 08/14/16 10:50 Smudge Cells Not Reportable 08/14/16 10:50 Toxic Granulation Not Reportable 08/14/16 10:50 Toxic Vacuolation Not Reportable 08/14/16 10:50 Dohle Bodies Not Reportable 08/14/16 10:50 Pelger-Huet Anomaly Not Reportable 08/14/16 10:50 Konstantin Rods Not Reportable 08/14/16 10:50 Platelet Estimate Consistent w auto 08/14/16 10:50 Clumped Platelets Not Reportable 08/14/16 10:50 Plt Clumps, EDTA Not Reportable 08/14/16 10:50 Large Platelets Not Reportable 08/14/16 10:50 Giant Platelets Not Reportable 08/14/16 10:50 Platelet Satelliting Not Reportable 08/14/16 10:50 Plt Morphology Comment Not Reportable 08/14/16 10:50 RBC Morphology Not Reportable 08/14/16 10:50 Dimorphic RBCs Not Reportable 08/14/16 10:50 Polychromasia Not Reportable 08/14/16 10:50 Hypochromasia Not Reportable 08/14/16 10:50 Poikilocytosis Not Reportable 08/14/16 10:50 Anisocytosis Not Reportable 08/14/16 10:50 Microcytosis Not Reportable 08/14/16 10:50 Macrocytosis Not Reportable 08/14/16 10:50 Spherocytes Not Reportable 08/14/16 10:50 Pappenheimer Bodies Not Reportable 08/14/16 10:50 Sickle Cells Not Reportable 08/14/16 10:50 Target Cells Not Reportable 08/14/16 10:50 Tear Drop Cells Not Reportable 08/14/16 10:50 Ovalocytes Not Reportable 08/14/16 10:50 Helmet Cells Not Reportable 08/14/16 10:50 [place] Bodies Not Reportable 08/14/16 10:50 [place] Rings Not Reportable 08/14/16 10:50 [place] Cells Not Reportable 08/14/16 10:50 Bite Cells Not Reportable 08/14/16 10:50 Crenated Cell Not Reportable 08/14/16 10:50 Elliptocytes Not Reportable 08/14/16 10:50 Acanthocytes (Spur) Not Reportable 08/14/16 10:50 Rouleaux Not Reportable 08/14/16 10:50 Hemoglobin C Crystals Not Reportable 08/14/16 10:50 Schistocytes Not Reportable 08/14/16 10:50 Malaria parasites Not Reportable 08/14/16 10:50 [place] Bodies Not Reportable 08/14/16 10:50 Hem Pathologist Commnt No 08/14/16 10:50 Sodium 135 mmol/L (137-145) L 08/16/16 04:07 Potassium 3.7 mmol/L (3.6-5.0) 08/16/16 04:07 Chloride 99.6 mmol/L (98-107) 08/16/16 04:07 Carbon Dioxide 17 mmol/L (22-30) L 08/16/16 04:07 Anion Gap 22 mmol/L 08/16/16 04:07 BUN 10 mg/dL (9-20) 08/16/16 04:07 Creatinine 0.5 mg/dL (0.8-1.5) L 08/16/16 04:07 Estimated GFR > 60 ml/min 08/16/16 04:07 BUN/Creatinine Ratio 20.00 % 08/16/16 04:07 Glucose 165 mg/dL (75-100) H 08/16/16 04:07 POC Glucose 177 (70-105) H 08/16/16 07:45 Lactic Acid 2.1 mmol/L (0.7-2.0) H* 08/14/16 16:48 Calcium 8.1 mg/dL (8.4-10.2) L 08/16/16 04:07 Total Bilirubin 1.8 mg/dL (0.1-1.2) H 08/15/16 05:02 AST 18 units/L (5-40) 08/15/16 05:02 ALT 35 units/L (7-56) 08/15/16 05:02 Alkaline Phosphatase 87 units/L (35-129) 08/15/16 05:02 C-Reactive Protein 42.50 mg/dL (0.00-1.30) H 08/16/16 06:37 Total Protein 6.1 g/dL (6.3-8.2) L 08/15/16 05:02 Albumin 3.7 g/dL (3.9-5) L 08/15/16 05:02 Albumin/Globulin Ratio 1.5 % 08/15/16 05:02 Lipase 101 units/L (13-60) H 08/16/16 06:37 Urine Color Yellow (Yellow) 08/14/16 13:32 Urine Turbidity Clear (Clear) 08/14/16 13:32 Urine pH 5.0 (5.0-7.0) 08/14/16 13:32 Ur Specific [place] 1.059 (1.003-1.030) H 08/14/16 13:32 Urine Protein <15 mg/dl mg/dL (Negative) 08/14/16 13:32 Urine Glucose (UA) >=500 mg/dL (Negative) 08/14/16 13:32 Urine Ketones 20 mg/dL (Negative) 08/14/16 13:32 Urine Blood Neg (Negative) 08/14/16 13:32 Urine Nitrite Neg (Negative) 08/14/16 13:32 Urine Bilirubin Neg (Negative) 08/14/16 13:32 Urine Urobilinogen < 2.0 mg/dL (<2.0) 08/14/16 13:32 Ur Leukocyte Esterase Neg (Negative) 08/14/16 13:32 Urine WBC (Auto) < 1.0 /HPF (0.0-6.0) 08/14/16 13:32 Urine RBC (Auto) 4.0 /HPF (0.0-6.0) 08/14/16 13:32 U Epithel Cells (Auto) 1.0 /HPF (0-13.0) 08/14/16 13:32 Urine Mucus Few /HPF 08/14/16 13:32
[2016-08-17] MEDS: ZOSYN/NS 4.5GM/100ML 4.5 GM/100 ML VIAL IV SCH ×4 (01:09→18:12)
[2016-08-17] MEDS: MORPHINE IV PRN ×6 (01:40→21:52)
[2016-08-17] MEDS: ZOFRAN IV PRN ×2 (04:36→15:10)
[2016-08-17] MEDS: NACL 0.9% IV SCH ×2 (07:30→18:11)
[2016-08-17] MEDS: FLORANEX PO SCH ×2 (09:43→21:50)
--- NOTE | 2016-08-17 11:00 | Progress Note ---
Assessment and Plan Assessment and plan: Patient is 41-year-old man with a history of tobacco dependency and diabetes mellitus who presented with abdominal pain with nausea vomiting. CT abdomen and pelvis with contrast showed pancreatitis. -Acute pancreatitis: Continue IV fluids and pain management, GI as following holding off feedings -No sepsis was present on admission without infection/source, he did have Sirs present on admission due to above -Tobacco dependency: Counseling -Type 2 diabetes mellitus:ssi ordered d/c once cleared by GI He tolerated jello this am History Interval history: Patient seen and examined. Follow up on abdominal pain which is still present in epigastric region but less severe. Overnight uneventful. No cp, sob, n/v or severe headaches. Imaging, old records, testing, labs, nursing notes reviewed. Plan discussed with patient. He tolerated jello. He wants to go home today. Hospitalist Physical - Physical exam Narrative exam: GEN: WDWN, NAD, AWAKE, ALERT, ORIENTATED 3 HEENT: NCAT, PERRL, EOMI, OP CLEAR NECK: SUPPLE, NO THYROMEGALY, NO JVD, NO LAD CVS: RRR, NORMAL S1S2 LUNGS/CHEST: CTA B, NORMAL CHEST EXPANSION B, GOOD AIR ENTRY B ABD: SOFT, EPIGASTRIC TENDERNESS WITHOUT DISTENTION, GBS, NO REBOUND OR GUARDING EXT/SKIN: NO SIGNIFICANT EDEMA OR RASH MSK: FROM X 4 EXTREMITIES NEURO: CN 2-12 GROSSLY INTACT, NO new FOCAL DEFICITS PSY: CALM - Constitutional Vitals: Temp Pulse Resp BP Pulse Ox 98.3 F 98 H 18 110/70 97 08/17/16 08:00 08/17/16 08:00 08/17/16 08:00 08/17/16 08:00 08/17/16 08:00 General appearance: Present: well-nourished Results - Labs CBC & Chem 7: 08/16/16 04:07 08/16/16 04:07 Labs: Laboratory Last Values WBC 15.7 K/mm3 (4.5-11.0) H 08/16/16 04:07 RBC 4.87 M/mm3 (3.65-5.03) 08/16/16 04:07 Hgb 15.3 gm/dl (11.8-15.2) H 08/16/16 04:07 Hct 44.5 % (35.5-45.6) 08/16/16 04:07 MCV 91 fl (84-94) 08/16/16 04:07 MCH 31 pg (28-32) 08/16/16 04:07 MCHC 34 % (32-34) 08/16/16 04:07 RDW 13.2 % (13.2-15.2) 08/16/16 04:07 Plt Count 142 K/mm3 (140-440) 08/16/16 04:07 Lymph % (Auto) 4.6 % (13.4-35.0) L 08/16/16 04:07 [place] % (Auto) 8.3 % (0.0-7.3) H 08/16/16 04:07 Eos % (Auto) 0.1 % (0.0-4.3) 08/16/16 04:07 Baso % (Auto) 0.1 % (0.0-1.8) 08/16/16 04:07 Lymph # 0.7 K/mm3 (1.2-5.4) L 08/16/16 04:07 [place] # 1.3 K/mm3 (0.0-0.8) H 08/16/16 04:07 Eos # 0.0 K/mm3 (0.0-0.4) 08/16/16 04:07 Baso # 0.0 K/mm3 (0.0-0.1) 08/16/16 04:07 Add Manual Diff Complete 08/14/16 10:50 Total Counted 100 08/14/16 10:50 Seg Neutrophils % 86.9 % (40.0-70.0) H 08/16/16 04:07 Seg Neuts % (Manual) 84.0 % (40.0-70.0) H 08/14/16 10:50 Band Neutrophils % 0 % 08/14/16 10:50 Lymphocytes % (Manual) 10.0 % (13.4-35.0) L 08/14/16 10:50 Reactive Lymphs % (Man) 0 % 08/14/16 10:50 Monocytes % (Manual) 6.0 % (0.0-7.3) 08/14/16 10:50 Eosinophils % (Manual) 0 % (0.0-4.3) 08/14/16 10:50 Basophils % (Manual) 0 % (0.0-1.8) 08/14/16 10:50 Metamyelocytes % 0 % 08/14/16 10:50 Myelocytes % 0 % 08/14/16 10:50 Promyelocytes % 0 % 08/14/16 10:50 Blast Cells % 0 % 08/14/16 10:50 Nucleated RBC % Not Reportable 08/14/16 10:50 Seg Neutrophils # 13.7 K/mm3 (1.8-7.7) H 08/16/16 04:07 Seg Neutrophils # Man 17.7 K/mm3 (1.8-7.7) H 08/14/16 10:50 Band Neutrophils # 0.0 K/mm3 08/14/16 10:50 Lymphocytes # (Manual) 2.1 K/mm3 (1.2-5.4) 08/14/16 10:50 Abs React Lymphs (Man) 0.0 K/mm3 08/14/16 10:50 Monocytes # (Manual) 1.3 K/mm3 (0.0-0.8) H 08/14/16 10:50 Eosinophils # (Manual) 0.0 K/mm3 (0.0-0.4) 08/14/16 10:50 Basophils # (Manual) 0.0 K/mm3 (0.0-0.1) 08/14/16 10:50 Metamyelocytes # 0.0 K/mm3 08/14/16 10:50 Myelocytes # 0.0 K/mm3 08/14/16 10:50 Promyelocytes # 0.0 K/mm3 08/14/16 10:50 Blast Cells # 0.0 K/mm3 08/14/16 10:50 WBC Morphology Not Reportable 08/14/16 10:50 Hypersegmented Neuts Not Reportable 08/14/16 10:50 Hyposegmented Neuts Not Reportable 08/14/16 10:50 Hypogranular Neuts Not Reportable 08/14/16 10:50 Smudge Cells Not Reportable 08/14/16 10:50 Toxic Granulation Not Reportable 08/14/16 10:50 Toxic Vacuolation Not Reportable 08/14/16 10:50 Dohle Bodies Not Reportable 08/14/16 10:50 Pelger-Huet Anomaly Not Reportable 08/14/16 10:50 Konstantin Rods Not Reportable 08/14/16 10:50 Platelet Estimate Consistent w auto 08/14/16 10:50 Clumped Platelets Not Reportable 08/14/16 10:50 Plt Clumps, EDTA Not Reportable 08/14/16 10:50 Large Platelets Not Reportable 08/14/16 10:50 Giant Platelets Not Reportable 08/14/16 10:50 Platelet Satelliting Not Reportable 08/14/16 10:50 Plt Morphology Comment Not Reportable 08/14/16 10:50 RBC Morphology Not Reportable 08/14/16 10:50 Dimorphic RBCs Not Reportable 08/14/16 10:50 Polychromasia Not Reportable 08/14/16 10:50 Hypochromasia Not Reportable 08/14/16 10:50 Poikilocytosis Not Reportable 08/14/16 10:50 Anisocytosis Not Reportable 08/14/16 10:50 Microcytosis Not Reportable 08/14/16 10:50 Macrocytosis Not Reportable 08/14/16 10:50 Spherocytes Not Reportable 08/14/16 10:50 Pappenheimer Bodies Not Reportable 08/14/16 10:50 Sickle Cells Not Reportable 08/14/16 10:50 Target Cells Not Reportable 08/14/16 10:50 Tear Drop Cells Not Reportable 08/14/16 10:50 Ovalocytes Not Reportable 08/14/16 10:50 Helmet Cells Not Reportable 08/14/16 10:50 [place] Bodies Not Reportable 08/14/16 10:50 [place] Rings Not Reportable 08/14/16 10:50 [place] Cells Not Reportable 08/14/16 10:50 Bite Cells Not Reportable 08/14/16 10:50 Crenated Cell Not Reportable 08/14/16 10:50 Elliptocytes Not Reportable 08/14/16 10:50 Acanthocytes (Spur) Not Reportable 08/14/16 10:50 Rouleaux Not Reportable 08/14/16 10:50 Hemoglobin C Crystals Not Reportable 08/14/16 10:50 Schistocytes Not Reportable 08/14/16 10:50 Malaria parasites Not Reportable 08/14/16 10:50 [place]il[place] Bodies Not Reportable 08/14/16 10:50 Hem Pathologist Commnt No 08/14/16 10:50 Sodium 135 mmol/L (137-145) L 08/16/16 04:07 Potassium 3.7 mmol/L (3.6-5.0) 08/16/16 04:07 Chloride 99.6 mmol/L (98-107) 08/16/16 04:07 Carbon Dioxide 17 mmol/L (22-30) L 08/16/16 04:07 Anion Gap 22 mmol/L 08/16/16 04:07 BUN 10 mg/dL (9-20) 08/16/16 04:07 Creatinine 0.5 mg/dL (0.8-1.5) L 08/16/16 04:07 Estimated GFR > 60 ml/min 08/16/16 04:07 BUN/Creatinine Ratio 20.00 % 08/16/16 04:07 Glucose 165 mg/dL (75-100) H 08/16/16 04:07 POC Glucose 145 (70-105) H 08/17/16 06:31 Lactic Acid 2.1 mmol/L (0.7-2.0) H* 08/14/16 16:48 Calcium 8.1 mg/dL (8.4-10.2) L 08/16/16 04:07 Total Bilirubin 1.8 mg/dL (0.1-1.2) H 08/15/16 05:02 AST 18 units/L (5-40) 08/15/16 05:02 ALT 35 units/L (7-56) 08/15/16 05:02 Alkaline Phosphatase 87 units/L (35-129) 08/15/16 05:02 C-Reactive Protein 42.50 mg/dL (0.00-1.30) H 08/16/16 06:37 Total Protein 6.1 g/dL (6.3-8.2) L 08/15/16 05:02 Albumin 3.7 g/dL (3.9-5) L 08/15/16 05:02 Albumin/Globulin Ratio 1.5 % 08/15/16 05:02 Lipase 101 units/L (13-60) H 08/16/16 06:37 Urine Color Yellow (Yellow) 08/14/16 13:32 Urine Turbidity Clear (Clear) 08/14/16 13:32 Urine pH 5.0 (5.0-7.0) 08/14/16 13:32 Ur Specific [place] 1.059 (1.003-1.030) H 08/14/16 13:32 Urine Protein <15 mg/dl mg/dL (Negative) 08/14/16 13:32 Urine Glucose (UA) >=500 mg/dL (Negative) 08/14/16 13:32 Urine Ketones 20 mg/dL (Negative) 08/14/16 13:32 Urine Blood Neg (Negative) 08/14/16 13:32 Urine Nitrite Neg (Negative) 08/14/16 13:32 Urine Bilirubin Neg (Negative) 08/14/16 13:32 Urine Urobilinogen < 2.0 mg/dL (<2.0) 08/14/16 13:32 Ur Leukocyte Esterase Neg (Negative) 08/14/16 13:32 Urine WBC (Auto) < 1.0 /HPF (0.0-6.0) 08/14/16 13:32 Urine RBC (Auto) 4.0 /HPF (0.0-6.0) 08/14/16 13:32 U Epithel Cells (Auto) 1.0 /HPF (0-13.0) 08/14/16 13:32 Urine Mucus Few /HPF 08/14/16 13:32
--- NOTE | 2016-08-17 11:04 | Discharge Summary ---
Providers - Providers Date of Admission: 08/14/16 13:24 Attending physician: ASHA OWENS 08/15/16 09:58 Consult to Physician [CONS] Routine Consulting Provider: GENTRY SORIANO Reason For Exam: pancreatitis Place consult to:: DR. SORIANO Notified:: OFFICE Phone number called:: [phone] Was contact made?: Yes If yes, spoke with:: NIKUNJ Time called:: 10:10 Comment:: MURPHY NOTIFIED Primary care physician: NEON SIGN ERECTOR Hospitalization Condition: Stable Hospital course: Patient is 41-year-old man with a history of tobacco dependency and diabetes mellitus who presented with abdominal pain with nausea vomiting. CT abdomen and pelvis with contrast showed pancreatitis. -Acute pancreatitis: Continue IV fluids and pain management, GI as following holding off feedings -No sepsis was present on admission without infection/source, he did have Sirs present on admission due to above -Tobacco dependency: Counseling -Type 2 diabetes mellitus:ssi ordered d/c once cleared by GI He tolerated jello this am Disposition: DISCHARGED TO HOME OR SELFCARE Time spent for discharge: 35 minutes Core Measure Documentation - Palliative Care Palliative Care/ Comfort Measures: Not Applicable - Core Measures Any of the following diagnoses?: none - VTE Discharge Requirements Deep Vein Thrombosis/Pulmonary Embolism Present on Admission: No Has pt received <5 days of overlap therapy or INR<2.0: No Anticoagulant overlap therapy prescribed at discharge: No Contraindication No Overlap Therapy order at DC: Not Indicated Exam - Physical Exam Narrative exam: GEN: WDWN, NAD, AWAKE, ALERT, ORIENTATED 3 HEENT: NCAT, PERRL, EOMI, OP CLEAR NECK: SUPPLE, NO THYROMEGALY, NO JVD, NO LAD CVS: RRR, NORMAL S1S2 LUNGS/CHEST: CTA B, NORMAL CHEST EXPANSION B, GOOD AIR ENTRY B ABD: SOFT, EPIGASTRIC TENDERNESS WITHOUT DISTENTION, GBS, NO REBOUND OR GUARDING EXT/SKIN: NO SIGNIFICANT EDEMA OR RASH MSK: FROM X 4 EXTREMITIES NEURO: CN 2-12 GROSSLY INTACT, NO new FOCAL DEFICITS PSY: CALM - Constitutional Vitals: Temp Pulse Resp BP Pulse Ox 98.3 F 98 H 18 110/70 97 08/17/16 08:00 08/17/16 08:00 08/17/16 08:00 08/17/16 08:00 08/17/16 08:00 Plan Activity: other (no strenous activites until cleared by PCP. ) Diet: clear liquids, advance as tolerated Follow up with: PRIMARY CARE, [Primary Care Provider] - 3-5 Days GENTRY SORIANO MD [Staff Physician] - 7 Days Prescriptions: oxyCODONE /ACETAMINOPHEN [Percocet 5/325] 1 tab PO Q4HR PRN #30 tab PRN Reason: Pain , Severe (7-10)
--- NOTE | 2016-08-17 16:10 | Progress Note ---
Assessment and Plan 1. Pancreatitis - etiology unclear. GB ultrasound negative. Pt denies significant EtOH. Tiarra clears, and abd pain seems to be better, though picture confused by likely L costochondral tenderness. - check labs, and if better, adv to low fat diet tomorrow. - pt encouraged to breath deep to prevent atelectasis, and to ambulate - may need laxatives Subjective Date of service: 08/17/16 Interval history: Pt tiarra clears. Complains of L flank/LUQ pain, shanta with deep breaths. No N/V. No BM since 08/14. Objective - Constitutional Vitals: Vital Signs - 12hr 08/17/16 08:00 Temperature 98.3 F Pulse Rate [ 98 H From Monitor] Respiratory 18 Rate Blood Pressure 110/70 [Right Arm] O2 Sat by Pulse 97 Oximetry General appearance: Present: mild distress - EENT Eyes: PERRL, EOM intact ENT: hearing intact - Respiratory Respiratory effort: other (Limited, due to pain. Exam of chest reveals tenderness of L lower ribs, shanta laterally.) - Gastrointestinal General gastrointestinal: Present: soft, tender (Mild LUQ), normal bowel sounds - Labs CBC & Chem 7: 08/16/16 04:07 08/16/16 04:07 Labs: Abnormal lab results 08/16/16 08/16/16 08/17/16 Range/Units 11:27 21:20 06:31 POC Glucose 145 H 156 H 145 H (70-105) 08/17/16 Range/Units 11:24 POC Glucose 159 H (70-105)
[2016-08-17] MEDS: ZOCOR PO SCH (21:50)
[2016-08-17] MEDS: ZESTRIL PO SCH (21:51)
[2016-08-18 00:23] LABS: Basophils % (Auto) 0.6 % (0.0-1.8); Eosinophils % (Auto) 0.6 % (0.0-4.3); Hemoglobin 13.1 gm/dl (11.8-15.2); Mean Corpuscular HGB Conc 35 % (32-34); Mean Corpuscular Hemoglobin 32 pg (28-32); Mean Corpuscular Volume 92 fl (84-94); Platelet Count 159 K/mm3 (140-440); Red Blood Count 4.14 M/mm3 (3.65-5.03); White Blood Count 10.5 K/mm3 (4.5-11.0)
[2016-08-18 01:29] LABS: Alanine Aminotransferase 29 units/L (7-56); Albumin 2.9 g/dL (3.9-5); Alkaline Phosphatase 125 units/L (35-129); Anion Gap 18 mmol/L; Blood Urea Nitrogen 9 mg/dL (9-20); Calcium 7.8 mg/dL (8.4-10.2); Carbon Dioxide 20 mmol/L (22-30); Chloride 99.2 mmol/L (98-107); Glucose 199 mg/dL (75-100); Lipase 48 units/L (13-60); Potassium 3.4 mmol/L (3.6-5.0); Sodium 134 mmol/L (137-145); Total Protein 5.9 g/dL (6.3-8.2)
[2016-08-18] MEDS: ZOSYN/NS 4.5GM/100ML 4.5 GM/100 ML VIAL IV SCH ×4 (01:36→17:17)
[2016-08-18] MEDS: NACL 0.9% IV SCH ×3 (01:42→20:33)
[2016-08-18 03:57] LABS: Triglycerides 103 mg/dL (2-149)
[2016-08-18] MEDS ORDERED: POTASSIUM CHLORIDE PO ONE ×2 (06:52→08:00)
--- NOTE | 2016-08-18 09:04 | Progress Note ---
Assessment and Plan Assessment and plan: Patient is 41-year-old man with a history of tobacco dependency and diabetes mellitus2 who presented with abdominal pains and nausea, vomiting. CT abdomen and pelvis with contrast showed pancreatitis. -Acute pancreatitis: Continue IV fluids and pain management, GI is following -No sepsis was present on admission without infection/source, he did have Sirs present on admission due to above, if infection is found then sepsis was present on admission. -Tobacco dependency: Counseling -Type 2 diabetes mellitus:ssi ordered Still with significant abd pains, still no bowel movement, will order suppository and enema. hypokalemia, poor intake, will replace History Interval history: Patient seen and examined. Follow up on abdominal pain which is still present in epigastric region but less severe. Overnight uneventful. No cp, sob, n/v or severe headaches. Imaging, old records, testing, labs, nursing notes reviewed. Plan discussed with patient. Hospitalist Physical - Physical exam Narrative exam: GEN: WDWN, NAD, AWAKE, ALERT, ORIENTATED 3 HEENT: NCAT, PERRL, EOMI, OP CLEAR NECK: SUPPLE, NO THYROMEGALY, NO JVD, NO LAD CVS: RRR, NORMAL S1S2 LUNGS/CHEST: CTA B, NORMAL CHEST EXPANSION B, GOOD AIR ENTRY B ABD: SOFT, EPIGASTRIC TENDERNESS WITHOUT DISTENTION, GBS, NO REBOUND OR GUARDING EXT/SKIN: NO SIGNIFICANT EDEMA OR RASH MSK: FROM X 4 EXTREMITIES NEURO: CN 2-12 GROSSLY INTACT, NO new FOCAL DEFICITS PSY: CALM - Constitutional Vitals: Temp Pulse Resp BP Pulse Ox 98.4 F 90 16 120/74 97 08/18/16 08:00 08/18/16 08:00 08/18/16 08:00 08/18/16 08:00 08/18/16 08:00 Results - Labs CBC & Chem 7: 08/18/16 00:06 08/18/16 00:06 Labs: Laboratory Last Values WBC 10.5 K/mm3 (4.5-11.0) 08/18/16 00:06 RBC 4.14 M/mm3 (3.65-5.03) 08/18/16 00:06 Hgb 13.1 gm/dl (11.8-15.2) 08/18/16 00:06 Hct 38.0 % (35.5-45.6) D 08/18/16 00:06 MCV 92 fl (84-94) 08/18/16 00:06 MCH 32 pg (28-32) 08/18/16 00:06 MCHC 35 % (32-34) H 08/18/16 00:06 RDW 13.0 % (13.2-15.2) L 08/18/16 00:06 Plt Count 159 K/mm3 (140-440) 08/18/16 00:06 Lymph % (Auto) 7.5 % (13.4-35.0) L 08/18/16 00:06 [place] % (Auto) 11.5 % (0.0-7.3) H 08/18/16 00:06 Eos % (Auto) 0.6 % (0.0-4.3) 08/18/16 00:06 Baso % (Auto) 0.6 % (0.0-1.8) 08/18/16 00:06 Lymph # 0.8 K/mm3 (1.2-5.4) L 08/18/16 00:06 [place] # 1.2 K/mm3 (0.0-0.8) H 08/18/16 00:06 Eos # 0.1 K/mm3 (0.0-0.4) 08/18/16 00:06 Baso # 0.1 K/mm3 (0.0-0.1) 08/18/16 00:06 Add Manual Diff Complete 08/14/16 10:50 Total Counted 100 08/14/16 10:50 Seg Neutrophils % 79.8 % (40.0-70.0) H 08/18/16 00:06 Seg Neuts % (Manual) 84.0 % (40.0-70.0) H 08/14/16 10:50 Band Neutrophils % 0 % 08/14/16 10:50 Lymphocytes % (Manual) 10.0 % (13.4-35.0) L 08/14/16 10:50 Reactive Lymphs % (Man) 0 % 08/14/16 10:50 Monocytes % (Manual) 6.0 % (0.0-7.3) 08/14/16 10:50 Eosinophils % (Manual) 0 % (0.0-4.3) 08/14/16 10:50 Basophils % (Manual) 0 % (0.0-1.8) 08/14/16 10:50 Metamyelocytes % 0 % 08/14/16 10:50 Myelocytes % 0 % 08/14/16 10:50 Promyelocytes % 0 % 08/14/16 10:50 Blast Cells % 0 % 08/14/16 10:50 Nucleated RBC % Not Reportable 08/14/16 10:50 Seg Neutrophils # 8.4 K/mm3 (1.8-7.7) H 08/18/16 00:06 Seg Neutrophils # Man 17.7 K/mm3 (1.8-7.7) H 08/14/16 10:50 Band Neutrophils # 0.0 K/mm3 08/14/16 10:50 Lymphocytes # (Manual) 2.1 K/mm3 (1.2-5.4) 08/14/16 10:50 Abs React Lymphs (Man) 0.0 K/mm3 08/14/16 10:50 Monocytes # (Manual) 1.3 K/mm3 (0.0-0.8) H 08/14/16 10:50 Eosinophils # (Manual) 0.0 K/mm3 (0.0-0.4) 08/14/16 10:50 Basophils # (Manual) 0.0 K/mm3 (0.0-0.1) 08/14/16 10:50 Metamyelocytes # 0.0 K/mm3 08/14/16 10:50 Myelocytes # 0.0 K/mm3 08/14/16 10:50 Promyelocytes # 0.0 K/mm3 08/14/16 10:50 Blast Cells # 0.0 K/mm3 08/14/16 10:50 WBC Morphology Not Reportable 08/14/16 10:50 Hypersegmented Neuts Not Reportable 08/14/16 10:50 Hyposegmented Neuts Not Reportable 08/14/16 10:50 Hypogranular Neuts Not Reportable 08/14/16 10:50 Smudge Cells Not Reportable 08/14/16 10:50 Toxic Granulation Not Reportable 08/14/16 10:50 Toxic Vacuolation Not Reportable 08/14/16 10:50 Dohle Bodies Not Reportable 08/14/16 10:50 Pelger-Huet Anomaly Not Reportable 08/14/16 10:50 Konstantin Rods Not Reportable 08/14/16 10:50 Platelet Estimate Consistent w auto 08/14/16 10:50 Clumped Platelets Not Reportable 08/14/16 10:50 Plt Clumps, EDTA Not Reportable 08/14/16 10:50 Large Platelets Not Reportable 08/14/16 10:50 Giant Platelets Not Reportable 08/14/16 10:50 Platelet Satelliting Not Reportable 08/14/16 10:50 Plt Morphology Comment Not Reportable 08/14/16 10:50 RBC Morphology Not Reportable 08/14/16 10:50 Dimorphic RBCs Not Reportable 08/14/16 10:50 Polychromasia Not Reportable 08/14/16 10:50 Hypochromasia Not Reportable 08/14/16 10:50 Poikilocytosis Not Reportable 08/14/16 10:50 Anisocytosis Not Reportable 08/14/16 10:50 Microcytosis Not Reportable 08/14/16 10:50 Macrocytosis Not Reportable 08/14/16 10:50 Spherocytes Not Reportable 08/14/16 10:50 Pappenheimer Bodies Not Reportable 08/14/16 10:50 Sickle Cells Not Reportable 08/14/16 10:50 Target Cells Not Reportable 08/14/16 10:50 Tear Drop Cells Not Reportable 08/14/16 10:50 Ovalocytes Not Reportable 08/14/16 10:50 Helmet Cells Not Reportable 08/14/16 10:50 [place] Bodies Not Reportable 08/14/16 10:50 [place] Rings Not Reportable 08/14/16 10:50 [place] Cells Not Reportable 08/14/16 10:50 Bite Cells Not Reportable 08/14/16 10:50 Crenated Cell Not Reportable 08/14/16 10:50 Elliptocytes Not Reportable 08/14/16 10:50 Acanthocytes (Spur) Not Reportable 08/14/16 10:50 Rouleaux Not Reportable 08/14/16 10:50 Hemoglobin C Crystals Not Reportable 08/14/16 10:50 Schistocytes Not Reportable 08/14/16 10:50 Malaria parasites Not Reportable 08/14/16 10:50 [place] Bodies Not Reportable 08/14/16 10:50 Hem Pathologist Commnt No 08/14/16 10:50 Sodium 134 mmol/L (137-145) L 08/18/16 00:06 Potassium 3.4 mmol/L (3.6-5.0) L 08/18/16 00:06 Chloride 99.2 mmol/L (98-107) 08/18/16 00:06 Carbon Dioxide 20 mmol/L (22-30) L 08/18/16 00:06 Anion Gap 18 mmol/L 08/18/16 00:06 BUN 9 mg/dL (9-20) 08/18/16 00:06 Creatinine 0.4 mg/dL (0.8-1.5) L 08/18/16 00:06 Estimated GFR > 60 ml/min 08/18/16 00:06 BUN/Creatinine Ratio 22.50 % 08/18/16 00:06 Glucose 199 mg/dL (75-100) H 08/18/16 00:06 POC Glucose 150 (70-105) H 08/18/16 06:34 Lactic Acid 2.1 mmol/L (0.7-2.0) H* 08/14/16 16:48 Calcium 7.8 mg/dL (8.4-10.2) L 08/18/16 00:06 Total Bilirubin 1.20 mg/dL (0.1-1.2) 08/18/16 00:06 AST 31 units/L (5-40) 08/18/16 00:06 ALT 29 units/L (7-56) 08/18/16 00:06 Alkaline Phosphatase 125 units/L (35-129) 08/18/16 00:06 C-Reactive Protein 25.90 mg/dL (0.00-1.30) H 08/18/16 05:28 Total Protein 5.9 g/dL (6.3-8.2) L 08/18/16 00:06 Albumin 2.9 g/dL (3.9-5) L 08/18/16 00:06 Albumin/Globulin Ratio 1.0 % 08/18/16 00:06 Triglycerides 103 mg/dL (2-149) 08/18/16 00:06 Lipase 48 units/L (13-60) 08/18/16 00:06 Urine Color Yellow (Yellow) 08/14/16 13:32 Urine Turbidity Clear (Clear) 08/14/16 13:32 Urine pH 5.0 (5.0-7.0) 08/14/16 13:32 Ur Specific [place] 1.059 (1.003-1.030) H 08/14/16 13:32 Urine Protein <15 mg/dl mg/dL (Negative) 08/14/16 13:32 Urine Glucose (UA) >=500 mg/dL (Negative) 08/14/16 13:32 Urine Ketones 20 mg/dL (Negative) 08/14/16 13:32 Urine Blood Neg (Negative) 08/14/16 13:32 Urine Nitrite Neg (Negative) 08/14/16 13:32 Urine Bilirubin Neg (Negative) 08/14/16 13:32 Urine Urobilinogen < 2.0 mg/dL (<2.0) 08/14/16 13:32 Ur Leukocyte Esterase Neg (Negative) 08/14/16 13:32 Urine WBC (Auto) < 1.0 /HPF (0.0-6.0) 08/14/16 13:32 Urine RBC (Auto) 4.0 /HPF (0.0-6.0) 08/14/16 13:32 U Epithel Cells (Auto) 1.0 /HPF (0-13.0) 08/14/16 13:32 Urine Mucus Few /HPF 08/14/16 13:32
[2016-08-18] MEDS: MORPHINE IV PRN ×3 (09:11→20:28)
[2016-08-18] MEDS: FLORANEX PO SCH ×2 (09:11→22:10)
[2016-08-18] MEDS ORDERED: DULCOLAX PR ONE (10:00)
--- NOTE | 2016-08-18 20:17 | Progress Note ---
Assessment and Plan 1. Pancreatitis - etiology unclear. GB ultrasound negative. Pt denies significant EtOH. Tiarra clears, and labs now normal. Picture confused by likely L costochondral tenderness. - adv to low fat diet tomorrow. - pt encouraged to breath deep to prevent atelectasis, and to ambulate - if no better, will repeat CT abdomen Subjective Date of service: 08/18/16 Interval history: Pt tiarra clears. Complains of L flank/LUQ pain, shanta with deep breaths. No N/V. Has had 3 BMs today. Day has been up and down. He has walked about several times. Objective - Constitutional Vitals: Vital Signs - 12hr 08/18/16 08/18/16 12:42 16:00 Temperature 98 F 97.9 F Pulse Rate [ 88 92 H From Monitor] Respiratory 18 18 Rate Blood Pressure 116/72 150/88 [Right Arm] General appearance: Present: mild distress - EENT Eyes: PERRL, EOM intact ENT: hearing intact - Respiratory Respiratory effort: labored (Mildly) - Gastrointestinal General gastrointestinal: Present: soft, tender (Mild, diffuse), normal bowel sounds - Labs CBC & Chem 7: 08/18/16 00:06 08/18/16 00:06 Labs: Abnormal lab results 08/17/16 08/18/16 08/18/16 Range/Units 20:52 00:06 00:06 MCHC 35 H (32-34) % RDW 13.0 L (13.2-15.2) % Lymph % (Auto) 7.5 L (13.4-35.0) % [place] % (Auto) 11.5 H (0.0-7.3) % Lymph # 0.8 L (1.2-5.4) K/mm3 [place] # 1.2 H (0.0-0.8) K/mm3 Seg Neutrophils % 79.8 H (40.0-70.0) % Seg Neutrophils # 8.4 H (1.8-7.7) K/mm3 Sodium 134 L (137-145) mmol/L Potassium 3.4 L (3.6-5.0) mmol/L Carbon Dioxide 20 L (22-30) mmol/L Creatinine 0.4 L (0.8-1.5) mg/dL Glucose 199 H (75-100) mg/dL POC Glucose 142 H (70-105) Calcium 7.8 L (8.4-10.2) mg/dL C-Reactive Protein (0.00-1.30) mg/dL Total Protein 5.9 L (6.3-8.2) g/dL Albumin 2.9 L (3.9-5) g/dL 08/18/16 08/18/16 08/18/16 Range/Units 05:28 06:34 11:24 MCHC (32-34) % RDW (13.2-15.2) % Lymph % (Auto) (13.4-35.0) % [place] % (Auto) (0.0-7.3) % Lymph # (1.2-5.4) K/mm3 [place] # (0.0-0.8) K/mm3 Seg Neutrophils % (40.0-70.0) % Seg Neutrophils # (1.8-7.7) K/mm3 Sodium (137-145) mmol/L Potassium (3.6-5.0) mmol/L Carbon Dioxide (22-30) mmol/L Creatinine (0.8-1.5) mg/dL Glucose (75-100) mg/dL POC Glucose 150 H 128 H (70-105) Calcium (8.4-10.2) mg/dL C-Reactive Protein 25.90 H (0.00-1.30) mg/dL Total Protein (6.3-8.2) g/dL Albumin (3.9-5) g/dL 08/18/16 Range/Units 16:22 MCHC (32-34) % RDW (13.2-15.2) % Lymph % (Auto) (13.4-35.0) % [place] % (Auto) (0.0-7.3) % Lymph # (1.2-5.4) K/mm3 [place] # (0.0-0.8) K/mm3 Seg Neutrophils % (40.0-70.0) % Seg Neutrophils # (1.8-7.7) K/mm3 Sodium (137-145) mmol/L Potassium (3.6-5.0) mmol/L Carbon Dioxide (22-30) mmol/L Creatinine (0.8-1.5) mg/dL Glucose (75-100) mg/dL POC Glucose 187 H (70-105) Calcium (8.4-10.2) mg/dL C-Reactive Protein (0.00-1.30) mg/dL Total Protein (6.3-8.2) g/dL Albumin (3.9-5) g/dL
[2016-08-18] MEDS: ZESTRIL PO SCH (22:10)
[2016-08-18] MEDS: ZOCOR PO SCH (22:11)
[2016-08-18] MEDS: PROTONIX IV SCH (22:12)
[2016-08-19] MEDS: ZOSYN/NS 4.5GM/100ML 4.5 GM/100 ML VIAL IV SCH ×4 (00:28→18:09)
[2016-08-19] MEDS: MORPHINE IV PRN ×3 (01:24→21:29)
[2016-08-19] MEDS: NACL 0.9% IV SCH (05:02)
[2016-08-19] MEDS: PROTONIX IV SCH ×2 (09:47→21:30)
[2016-08-19] MEDS: FLORANEX PO SCH ×3 (09:54→21:32)
--- NOTE | 2016-08-19 11:28 | Progress Note ---
Assessment and Plan Assessment and plan: Patient is 41-year-old man with a history of tobacco dependency and diabetes mellitus2 who presented with abdominal pains, nausea and vomiting. CT abdomen and pelvis with contrast showed pancreatitis. -Acute pancreatitis: Continue IV fluids and pain management, GI is following -No sepsis was present on admission without infection/source, he did have SIRS present on admission due to above, if infection is found then sepsis was present on admission. -Tobacco dependency: Counseling for cessation done -Type 2 diabetes mellitus:ssi ordered -Constipation resolved -hypokalemia, poor intake, replaced will recheck a.m. -DVT prophylaxis: scd and added sq lovenox -Disposition: Discharge once cleared by GI Full code Ordered CMP, CBC and lipase in AM Dr. Guillen, GI saw patient late last night and mentioned advancing his diet but no orders placed History Interval history: Patient seen and examined. Follow up on abdominal pain which is still present in epigastric region but less severe. Overnight uneventful. No cp, sob, n/v or severe headaches. Imaging, old records, testing, labs, nursing notes reviewed. Plan discussed with patient. at bedside. Hospitalist Physical - Physical exam Narrative exam: GEN: WDWN, NAD, AWAKE, ALERT, ORIENTATED 3 HEENT: NCAT, PERRL, EOMI, OP CLEAR NECK: SUPPLE, NO THYROMEGALY, NO JVD, NO LAD CVS: RRR, NORMAL S1S2 LUNGS/CHEST: CTA B, NORMAL CHEST EXPANSION B, GOOD AIR ENTRY B ABD: SOFT, EPIGASTRIC TENDERNESS WITHOUT DISTENTION, GBS, NO REBOUND OR GUARDING EXT/SKIN: NO SIGNIFICANT EDEMA OR RASH MSK: FROM X 4 EXTREMITIES NEURO: CN 2-12 GROSSLY INTACT, NO new FOCAL DEFICITS PSY: CALM - Constitutional Vitals: Temp Pulse Resp BP Pulse Ox 98.1 F 80 20 181/78 97 08/19/16 07:35 08/19/16 07:35 08/19/16 07:35 08/19/16 07:35 08/19/16 07:35 Results - Labs CBC & Chem 7: 08/18/16 00:06 08/18/16 00:06 Labs: Laboratory Last Values WBC 10.5 K/mm3 (4.5-11.0) 08/18/16 00:06 RBC 4.14 M/mm3 (3.65-5.03) 08/18/16 00:06 Hgb 13.1 gm/dl (11.8-15.2) 08/18/16 00:06 Hct 38.0 % (35.5-45.6) D 08/18/16 00:06 MCV 92 fl (84-94) 08/18/16 00:06 MCH 32 pg (28-32) 08/18/16 00:06 MCHC 35 % (32-34) H 08/18/16 00:06 RDW 13.0 % (13.2-15.2) L 08/18/16 00:06 Plt Count 159 K/mm3 (140-440) 08/18/16 00:06 Lymph % (Auto) 7.5 % (13.4-35.0) L 08/18/16 00:06 [place] % (Auto) 11.5 % (0.0-7.3) H 08/18/16 00:06 Eos % (Auto) 0.6 % (0.0-4.3) 08/18/16 00:06 Baso % (Auto) 0.6 % (0.0-1.8) 08/18/16 00:06 Lymph # 0.8 K/mm3 (1.2-5.4) L 08/18/16 00:06 [place] # 1.2 K/mm3 (0.0-0.8) H 08/18/16 00:06 Eos # 0.1 K/mm3 (0.0-0.4) 08/18/16 00:06 Baso # 0.1 K/mm3 (0.0-0.1) 08/18/16 00:06 Add Manual Diff Complete 08/14/16 10:50 Total Counted 100 08/14/16 10:50 Seg Neutrophils % 79.8 % (40.0-70.0) H 08/18/16 00:06 Seg Neuts % (Manual) 84.0 % (40.0-70.0) H 08/14/16 10:50 Band Neutrophils % 0 % 08/14/16 10:50 Lymphocytes % (Manual) 10.0 % (13.4-35.0) L 08/14/16 10:50 Reactive Lymphs % (Man) 0 % 08/14/16 10:50 Monocytes % (Manual) 6.0 % (0.0-7.3) 08/14/16 10:50 Eosinophils % (Manual) 0 % (0.0-4.3) 08/14/16 10:50 Basophils % (Manual) 0 % (0.0-1.8) 08/14/16 10:50 Metamyelocytes % 0 % 08/14/16 10:50 Myelocytes % 0 % 08/14/16 10:50 Promyelocytes % 0 % 08/14/16 10:50 Blast Cells % 0 % 08/14/16 10:50 Nucleated RBC % Not Reportable 08/14/16 10:50 Seg Neutrophils # 8.4 K/mm3 (1.8-7.7) H 08/18/16 00:06 Seg Neutrophils # Man 17.7 K/mm3 (1.8-7.7) H 08/14/16 10:50 Band Neutrophils # 0.0 K/mm3 08/14/16 10:50 Lymphocytes # (Manual) 2.1 K/mm3 (1.2-5.4) 08/14/16 10:50 Abs React Lymphs (Man) 0.0 K/mm3 08/14/16 10:50 Monocytes # (Manual) 1.3 K/mm3 (0.0-0.8) H 08/14/16 10:50 Eosinophils # (Manual) 0.0 K/mm3 (0.0-0.4) 08/14/16 10:50 Basophils # (Manual) 0.0 K/mm3 (0.0-0.1) 08/14/16 10:50 Metamyelocytes # 0.0 K/mm3 08/14/16 10:50 Myelocytes # 0.0 K/mm3 08/14/16 10:50 Promyelocytes # 0.0 K/mm3 08/14/16 10:50 Blast Cells # 0.0 K/mm3 08/14/16 10:50 WBC Morphology Not Reportable 08/14/16 10:50 Hypersegmented Neuts Not Reportable 08/14/16 10:50 Hyposegmented Neuts Not Reportable 08/14/16 10:50 Hypogranular Neuts Not Reportable 08/14/16 10:50 Smudge Cells Not Reportable 08/14/16 10:50 Toxic Granulation Not Reportable 08/14/16 10:50 Toxic Vacuolation Not Reportable 08/14/16 10:50 Dohle Bodies Not Reportable 08/14/16 10:50 Pelger-Huet Anomaly Not Reportable 08/14/16 10:50 Konstantin Rods Not Reportable 08/14/16 10:50 Platelet Estimate Consistent w auto 08/14/16 10:50 Clumped Platelets Not Reportable 08/14/16 10:50 Plt Clumps, EDTA Not Reportable 08/14/16 10:50 Large Platelets Not Reportable 08/14/16 10:50 Giant Platelets Not Reportable 08/14/16 10:50 Platelet Satelliting Not Reportable 08/14/16 10:50 Plt Morphology Comment Not Reportable 08/14/16 10:50 RBC Morphology Not Reportable 08/14/16 10:50 Dimorphic RBCs Not Reportable 08/14/16 10:50 Polychromasia Not Reportable 08/14/16 10:50 Hypochromasia Not Reportable 08/14/16 10:50 Poikilocytosis Not Reportable 08/14/16 10:50 Anisocytosis Not Reportable 08/14/16 10:50 Microcytosis Not Reportable 08/14/16 10:50 Macrocytosis Not Reportable 08/14/16 10:50 Spherocytes Not Reportable 08/14/16 10:50 Pappenheimer Bodies Not Reportable 08/14/16 10:50 Sickle Cells Not Reportable 08/14/16 10:50 Target Cells Not Reportable 08/14/16 10:50 Tear Drop Cells Not Reportable 08/14/16 10:50 Ovalocytes Not Reportable 08/14/16 10:50 Helmet Cells Not Reportable 08/14/16 10:50 [place] Bodies Not Reportable 08/14/16 10:50 [place] Rings Not Reportable 08/14/16 10:50 [place] Cells Not Reportable 08/14/16 10:50 Bite Cells Not Reportable 08/14/16 10:50 Crenated Cell Not Reportable 08/14/16 10:50 Elliptocytes Not Reportable 08/14/16 10:50 Acanthocytes (Spur) Not Reportable 08/14/16 10:50 Rouleaux Not Reportable 08/14/16 10:50 Hemoglobin C Crystals Not Reportable 08/14/16 10:50 Schistocytes Not Reportable 08/14/16 10:50 Malaria parasites Not Reportable 08/14/16 10:50 [place] Bodies Not Reportable 08/14/16 10:50 Hem Pathologist Commnt No 08/14/16 10:50 Sodium 134 mmol/L (137-145) L 08/18/16 00:06 Potassium 3.4 mmol/L (3.6-5.0) L 08/18/16 00:06 Chloride 99.2 mmol/L (98-107) 08/18/16 00:06 Carbon Dioxide 20 mmol/L (22-30) L 08/18/16 00:06 Anion Gap 18 mmol/L 08/18/16 00:06 BUN 9 mg/dL (9-20) 08/18/16 00:06 Creatinine 0.4 mg/dL (0.8-1.5) L 08/18/16 00:06 Estimated GFR > 60 ml/min 08/18/16 00:06 BUN/Creatinine Ratio 22.50 % 08/18/16 00:06 Glucose 199 mg/dL (75-100) H 08/18/16 00:06 POC Glucose 123 (70-105) H 08/19/16 06:39 Lactic Acid 2.1 mmol/L (0.7-2.0) H* 08/14/16 16:48 Calcium 7.8 mg/dL (8.4-10.2) L 08/18/16 00:06 Total Bilirubin 1.20 mg/dL (0.1-1.2) 08/18/16 00:06 AST 31 units/L (5-40) 08/18/16 00:06 ALT 29 units/L (7-56) 08/18/16 00:06 Alkaline Phosphatase 125 units/L (35-129) 08/18/16 00:06 C-Reactive Protein 25.90 mg/dL (0.00-1.30) H 08/18/16 05:28 Total Protein 5.9 g/dL (6.3-8.2) L 08/18/16 00:06 Albumin 2.9 g/dL (3.9-5) L 08/18/16 00:06 Albumin/Globulin Ratio 1.0 % 08/18/16 00:06 Triglycerides 103 mg/dL (2-149) 08/18/16 00:06 Lipase 48 units/L (13-60) 08/18/16 00:06 Urine Color Yellow (Yellow) 08/14/16 13:32 Urine Turbidity Clear (Clear) 08/14/16 13:32 Urine pH 5.0 (5.0-7.0) 08/14/16 13:32 Ur Specific [place] 1.059 (1.003-1.030) H 08/14/16 13:32 Urine Protein <15 mg/dl mg/dL (Negative) 08/14/16 13:32 Urine Glucose (UA) >=500 mg/dL (Negative) 08/14/16 13:32 Urine Ketones 20 mg/dL (Negative) 08/14/16 13:32 Urine Blood Neg (Negative) 08/14/16 13:32 Urine Nitrite Neg (Negative) 08/14/16 13:32 Urine Bilirubin Neg (Negative) 08/14/16 13:32 Urine Urobilinogen < 2.0 mg/dL (<2.0) 08/14/16 13:32 Ur Leukocyte Esterase Neg (Negative) 08/14/16 13:32 Urine WBC (Auto) < 1.0 /HPF (0.0-6.0) 08/14/16 13:32 Urine RBC (Auto) 4.0 /HPF (0.0-6.0) 08/14/16 13:32 U Epithel Cells (Auto) 1.0 /HPF (0-13.0) 08/14/16 13:32 Urine Mucus Few /HPF 08/14/16 13:32
[2016-08-19 14:02] LABS: Basophils % (Auto) 0.4 % (0.0-1.8); Eosinophils % (Auto) 1.1 % (0.0-4.3); Hematocrit 39.6 % (35.5-45.6); Hemoglobin 13.8 gm/dl (11.8-15.2); Mean Corpuscular HGB Conc 35 % (32-34); Mean Corpuscular Hemoglobin 32 pg (28-32); Mean Corpuscular Volume 91 fl (84-94); Platelet Count 228 K/mm3 (140-440); Red Blood Count 4.36 M/mm3 (3.65-5.03); Red Cell Distribution Width 13.2 % (13.2-15.2); White Blood Count 12.3 K/mm3 (4.5-11.0)
[2016-08-19 14:16] LABS: Alanine Aminotransferase 38 units/L (7-56); Albumin 2.8 g/dL (3.9-5); Albumin/Globulin Ratio 0.8 %; Alkaline Phosphatase 162 units/L (35-129); Anion Gap 21 mmol/L; Blood Urea Nitrogen 6 mg/dL (9-20); Calcium 8.6 mg/dL (8.4-10.2); Carbon Dioxide 20 mmol/L (22-30); Chloride 99.3 mmol/L (98-107); Glucose 155 mg/dL (75-100); Lipase 45 units/L (13-60); Potassium 3.2 mmol/L (3.6-5.0); Sodium 137 mmol/L (137-145); Total Protein 6.5 g/dL (6.3-8.2)
--- NOTE | 2016-08-19 15:35 | Progress Note ---
Assessment and Plan 1. Pancreatitis - etiology unclear. GB ultrasound negative. Pt denies significant EtOH. On low fat diet, and need to recheck labs and see if they worsen, as labs now normal. Picture confused by likely L costochondral tenderness. Tenderness seems more pronounced on L side. Also, decreased BS in L base suggestive of atelectasis. - Repeat CT. - pt encouraged to breath deep to prevent atelectasis, and to ambulate - check labs tomorrow after po intake today. If no worse, and pt clinically better, may discharge tomorrow. Subjective Date of service: 08/19/16 Interval history: Pt tiarra 2 bites of solid food without change in symptoms. Complains of L flank/ LUQ pain, shanta with deep breaths, but somewhat better. No N/V. Has been walking about. Objective - Constitutional Vitals: Vital Signs - 12hr 08/19/16 08/19/16 05:46 07:35 Temperature 99.3 F 98.1 F Pulse Rate [ 93 H 80 From Monitor] Respiratory 18 20 Rate Blood Pressure 149/90 181/78 [Right Arm] O2 Sat by Pulse 97 Oximetry General appearance: Present: mild distress (but better) - EENT Eyes: PERRL, EOM intact ENT: hearing intact - Respiratory Respiratory effort: normal Respiratory: left: diminished (bronchial type BS in L base) - Gastrointestinal General gastrointestinal: Present: soft, tender (Mild to moderate on L side. Still has L lower rib tenderness as well.) - Labs CBC & Chem 7: 08/19/16 13:09 08/19/16 13:09 Labs: Abnormal lab results 08/18/16 08/18/16 08/19/16 Range/Units 16:22 21:37 06:39 WBC (4.5-11.0) K/mm3 MCHC (32-34) % Lymph % (Auto) (13.4-35.0) % Armstrong % (Auto) (0.0-7.3) % Lymph # (1.2-5.4) K/mm3 Armstrong # (0.0-0.8) K/mm3 Seg Neutrophils % (40.0-70.0) % Seg Neutrophils # (1.8-7.7) K/mm3 Potassium (3.6-5.0) mmol/L Carbon Dioxide (22-30) mmol/L BUN (9-20) mg/dL Creatinine (0.8-1.5) mg/dL Glucose (75-100) mg/dL POC Glucose 187 H 164 H 123 H (70-105) Alkaline Phosphatase (35-129) units/L Albumin (3.9-5) g/dL 08/19/16 08/19/16 Range/Units 13:09 13:09 WBC 12.3 H (4.5-11.0) K/mm3 MCHC 35 H (32-34) % Lymph % (Auto) 8.3 L (13.4-35.0) % Armstrong % (Auto) 10.8 H (0.0-7.3) % Lymph # 1.0 L (1.2-5.4) K/mm3 Armstrong # 1.3 H (0.0-0.8) K/mm3 Seg Neutrophils % 79.4 H (40.0-70.0) % Seg Neutrophils # 9.8 H (1.8-7.7) K/mm3 Potassium 3.2 L (3.6-5.0) mmol/L Carbon Dioxide 20 L (22-30) mmol/L BUN 6 L (9-20) mg/dL Creatinine 0.4 L (0.8-1.5) mg/dL Glucose 155 H (75-100) mg/dL POC Glucose (70-105) Alkaline Phosphatase 162 H (35-129) units/L Albumin 2.8 L (3.9-5) g/dL
--- NOTE | 2016-08-19 18:56 | Cat Scan Report ---
FINAL REPORT EXAM: CT ABDOMEN PELVIS W CON HISTORY: f/u pancreatitis TECHNIQUE: CT images are acquired through the Abdomen and Pelvis in late arterial and delayed venous phases following intravenous administration of 100 cc Omnipaque 300 contrast. Transaxial, coronal and sagittal reformations are provided. PRIORS: 08/14/2016 FINDINGS: Partially visualized intrathoracic contents are remarkable for small left greater than right pleural effusions with associated compressive atelectasis. The liver, gallbladder, spleen, and adrenal glands are normal. There is disorganized fluid and stranding surrounding the pancreatic body and tail and extending inferiorly within the retroperitoneum and into the pelvis and left pericolic gutter. Ill-defined areas of hypo enhancement within the body and tail of the pancreas best demonstrated on axial series 3, image 62 subjectively involve less than 30 percent of the pancreatic parenchyma. No walled-off necrosis. Kidneys show no worrisome lesions, hydronephrosis, or calculi. Urinary bladder is unremarkable. Residual positive enteric contrast from recent exam. Small and large bowel are normal in caliber. Appendix is normal. No pneumoperitoneum. Aorta is normal in course and caliber. Superficial soft tissues are unremarkable. No acute or aggressive appearing skeletal findings. IMPRESSION: Increased retroperitoneal fluid compared to 08/14/2016. Small pleural effusions are new. Hypo enhancement of the pancreatic parenchyma suggestive of pancreatic necrosis subjectively involves less than 30 percent of the total pancreatic parenchyma, and certainly less than half. There is no organized peripancreatic fluid collection.
[2016-08-19] MEDS: LOVENOX SUB-Q SCH (21:34)
[2016-08-19] MEDS: ZOCOR PO SCH (21:34)
[2016-08-19] MEDS: ZESTRIL PO SCH (21:35)
[2016-08-20] MEDS: ZOSYN/NS 4.5GM/100ML 4.5 GM/100 ML VIAL IV SCH ×5 (00:14→23:52)
[2016-08-20] MEDS: MORPHINE IV PRN ×5 (01:28→22:02)
[2016-08-20 01:42] LABS: Basophils % (Auto) 0.5 % (0.0-1.8); Eosinophils % (Auto) 1.1 % (0.0-4.3); Hematocrit 36.4 % (35.5-45.6); Hemoglobin 12.7 gm/dl (11.8-15.2); Mean Corpuscular HGB Conc 35 % (32-34); Mean Corpuscular Hemoglobin 32 pg (28-32); Mean Corpuscular Volume 91 fl (84-94); Platelet Count 213 K/mm3 (140-440); Red Cell Distribution Width 12.9 % (13.2-15.2); White Blood Count 12.6 K/mm3 (4.5-11.0)
[2016-08-20] MEDS: NACL 0.9% IV SCH ×3 (02:43→23:52)
[2016-08-20 05:45] LABS: Hematocrit 38.9 % (35.5-45.6); Hemoglobin 13.3 gm/dl (11.8-15.2); Mean Corpuscular HGB Conc 34 % (32-34); Mean Corpuscular Hemoglobin 31 pg (28-32); Mean Corpuscular Volume 91 fl (84-94); Platelet Count 236 K/mm3 (140-440); Red Blood Count 4.27 M/mm3 (3.65-5.03); Red Cell Distribution Width 13.2 % (13.2-15.2); White Blood Count 13.2 K/mm3 (4.5-11.0)
[2016-08-20 06:08] LABS: Alanine Aminotransferase 65 units/L (7-56); Albumin/Globulin Ratio 0.8 %; Alkaline Phosphatase 210 units/L (35-129); Anion Gap 23 mmol/L; Blood Urea Nitrogen 7 mg/dL (9-20); Calcium 8.8 mg/dL (8.4-10.2); Carbon Dioxide 19 mmol/L (22-30); Chloride 98.2 mmol/L (98-107); Glucose 120 mg/dL (75-100); Lipase 44 units/L (13-60); Potassium 3.3 mmol/L (3.6-5.0); Sodium 137 mmol/L (137-145); Total Protein 6.7 g/dL (6.3-8.2)
[2016-08-20] MEDS ORDERED: K-DUR PO ONE (09:00)
[2016-08-20] MEDS: SODIUM BICARBONATE PO SCH ×2 (09:25→22:06)
[2016-08-20] MEDS: PROTONIX PO SCH ×2 (09:26→22:07)
[2016-08-20] MEDS: FLORANEX PO SCH ×2 (09:26→22:06)
--- NOTE | 2016-08-20 10:53 | XRay Report ---
EYE BILATERAL FOREIGN BODY, 2 VIEWS History: MRI screening for metal and orbital cavities. Findings: Frontal and lateral views of the calvarium were obtained. No radiopaque metallic foreign body is detected in the orbital cavities. Impression: No metallic foreign body identified.
--- NOTE | 2016-08-20 10:54 | XRay Report ---
LEFT RIBS, 3 VIEWS: History: Left rib pain. Routine views of the rib cage demonstrate normal mineralization with no significant contour abnormalities, fractures or destructive lesions. A small left pleural effusion is noted. IMPRESSION: No left rib deformity is detected. Small left pleural effusion.
--- NOTE | 2016-08-20 13:30 | Progress Note ---
Assessment and Plan Assessment and plan: Patient is 41-year-old man with a history of tobacco dependency and diabetes mellitus 2 who presented with abdominal pains, nausea and vomiting. CT abdomen and pelvis with contrast showed pancreatitis. * Acute pancreatitis of unknown etiology * Left costochondral tenderness * Tobacco dependency * SIRS secondary to acute pancreatitis no evidence of infection or sepsis. * Hypokalemia * Type 2 diabetes mellitus * Constipation-now resolved * Moderate protein calorie malnutrition * Small pleural effusion with noted retroperitoneal fluid PLAN: * Continue supportive care. Will discontinue by mouth intake due to increased pain and increased LFTs as a result of fluid. * Discussed with GI Dr. Guillen will proceed with MRCP, also x-ray of left rib area to further evaluation OTHER etiology of pain. * If pain is all resolved and continues to be pleuritic considering acute pancreatitis may need to be ruled out for pulmonary embolism and Y think this is low risk at this point. * Replace potassium. * Add 4 does of Sodium Bicarb. * Discussed need for better dietary intake, if need for prolonged nothing by mouth will obtain dietary consultation * Continue Pain Control * Plan of care discussed in detail with the patient and spouse who is at the bedside * DVT and GI prophylaxis * Full code History Interval history: Patient seen and examined. Follow up on abdominal pain which is still present in left flank region, left upper extremity, pleuritic in nature. She reports increased pain with food. No cp, sob, n/v or severe headaches. No other adverse event reported by nursing staff. Hospitalist Physical - Physical exam Narrative exam: VITAL SIGNS: Reviewed. GENERAL: The patient appeared well nourished and normally developed. Vital signs as documented. HEAD: No signs of head trauma. EYES: Pupils are equal. Extraocular motions intact. EARS: Hearing grossly intact. MOUTH: Oropharynx is normal. NECK: No adenopathy, no JVD. CHEST: Chest with breath sounds left lower lobe, pleuritic pain noted. No wheezes, rales, or rhonchi. CARDIAC: Regular rate and rhythm. S1 and S2, without murmurs, gallops, or rubs. VASCULAR: No Edema. Peripheral pulses normal and equal in all extremities. ABDOMEN: Soft, left upper quadrant and flank tenderness. No discrete epigastric tenderness. No sign of distention. No rebound or guarding, and no masses palpated. Bowel Sounds normal. MUSCULOSKELETAL: Good range of motion of all major joints. Extremities without clubbing, cyanosis or edema. NEUROLOGIC EXAM: Alert and oriented x 3. No focal sensory or strength deficits. Speech normal. Follows commands. PSYCHIATRIC: Mood normal. SKIN: Tattoos - Constitutional Vitals: Temp Pulse Resp BP Pulse Ox 97.9 F 86 16 127/85 97 08/20/16 07:20 08/20/16 07:20 08/20/16 07:20 08/20/16 07:20 08/20/16 07:20 General appearance: Present: mild distress (but better) Results - Labs CBC & Chem 7: 08/20/16 04:31 08/20/16 04:31 Labs: Laboratory Last Values WBC 13.2 K/mm3 (4.5-11.0) H 08/20/16 04:31 RBC 4.27 M/mm3 (3.65-5.03) 08/20/16 04:31 Hgb 13.3 gm/dl (11.8-15.2) 08/20/16 04:31 Hct 38.9 % (35.5-45.6) 08/20/16 04:31 MCV 91 fl (84-94) 08/20/16 04:31 MCH 31 pg (28-32) 08/20/16 04:31 MCHC 34 % (32-34) 08/20/16 04:31 RDW 13.2 % (13.2-15.2) 08/20/16 04:31 Plt Count 236 K/mm3 (140-440) 08/20/16 04:31 Lymph % (Auto) 11.1 % (13.4-35.0) L 08/20/16 00:41 [place] % (Auto) 10.9 % (0.0-7.3) H 08/20/16 00:41 Eos % (Auto) 1.1 % (0.0-4.3) 08/20/16 00:41 Baso % (Auto) 0.5 % (0.0-1.8) 08/20/16 00:41 Lymph # 1.4 K/mm3 (1.2-5.4) 08/20/16 00:41 [place] # 1.4 K/mm3 (0.0-0.8) H 08/20/16 00:41 Eos # 0.1 K/mm3 (0.0-0.4) 08/20/16 00:41 Baso # 0.1 K/mm3 (0.0-0.1) 08/20/16 00:41 Add Manual Diff Complete 08/14/16 10:50 Total Counted 100 08/14/16 10:50 Seg Neutrophils % 76.4 % (40.0-70.0) H 08/20/16 00:41 Seg Neuts % (Manual) 84.0 % (40.0-70.0) H 08/14/16 10:50 Band Neutrophils % 0 % 08/14/16 10:50 Lymphocytes % (Manual) 10.0 % (13.4-35.0) L 08/14/16 10:50 Reactive Lymphs % (Man) 0 % 08/14/16 10:50 Monocytes % (Manual) 6.0 % (0.0-7.3) 08/14/16 10:50 Eosinophils % (Manual) 0 % (0.0-4.3) 08/14/16 10:50 Basophils % (Manual) 0 % (0.0-1.8) 08/14/16 10:50 Metamyelocytes % 0 % 08/14/16 10:50 Myelocytes % 0 % 08/14/16 10:50 Promyelocytes % 0 % 08/14/16 10:50 Blast Cells % 0 % 08/14/16 10:50 Nucleated RBC % Not Reportable 08/14/16 10:50 Seg Neutrophils # 9.6 K/mm3 (1.8-7.7) H 08/20/16 00:41 Seg Neutrophils # Man 17.7 K/mm3 (1.8-7.7) H 08/14/16 10:50 Band Neutrophils # 0.0 K/mm3 08/14/16 10:50 Lymphocytes # (Manual) 2.1 K/mm3 (1.2-5.4) 08/14/16 10:50 Abs React Lymphs (Man) 0.0 K/mm3 08/14/16 10:50 Monocytes # (Manual) 1.3 K/mm3 (0.0-0.8) H 08/14/16 10:50 Eosinophils # (Manual) 0.0 K/mm3 (0.0-0.4) 08/14/16 10:50 Basophils # (Manual) 0.0 K/mm3 (0.0-0.1) 08/14/16 10:50 Metamyelocytes # 0.0 K/mm3 08/14/16 10:50 Myelocytes # 0.0 K/mm3 08/14/16 10:50 Promyelocytes # 0.0 K/mm3 08/14/16 10:50 Blast Cells # 0.0 K/mm3 08/14/16 10:50 WBC Morphology Not Reportable 08/14/16 10:50 Hypersegmented Neuts Not Reportable 08/14/16 10:50 Hyposegmented Neuts Not Reportable 08/14/16 10:50 Hypogranular Neuts Not Reportable 08/14/16 10:50 Smudge Cells Not Reportable 08/14/16 10:50 Toxic Granulation Not Reportable 08/14/16 10:50 Toxic Vacuolation Not Reportable 08/14/16 10:50 Dohle Bodies Not Reportable 08/14/16 10:50 Pelger-Huet Anomaly Not Reportable 08/14/16 10:50 Konstantin Rods Not Reportable 08/14/16 10:50 Platelet Estimate Consistent w auto 08/14/16 10:50 Clumped Platelets Not Reportable 08/14/16 10:50 Plt Clumps, EDTA Not Reportable 08/14/16 10:50 Large Platelets Not Reportable 08/14/16 10:50 Giant Platelets Not Reportable 08/14/16 10:50 Platelet Satelliting Not Reportable 08/14/16 10:50 Plt Morphology Comment Not Reportable 08/14/16 10:50 RBC Morphology Not Reportable 08/14/16 10:50 Dimorphic RBCs Not Reportable 08/14/16 10:50 Polychromasia Not Reportable 08/14/16 10:50 Hypochromasia Not Reportable 08/14/16 10:50 Poikilocytosis Not Reportable 08/14/16 10:50 Anisocytosis Not Reportable 08/14/16 10:50 Microcytosis Not Reportable 08/14/16 10:50 Macrocytosis Not Reportable 08/14/16 10:50 Spherocytes Not Reportable 08/14/16 10:50 Pappenheimer Bodies Not Reportable 08/14/16 10:50 Sickle Cells Not Reportable 08/14/16 10:50 Target Cells Not Reportable 08/14/16 10:50 Tear Drop Cells Not Reportable 08/14/16 10:50 Ovalocytes Not Reportable 08/14/16 10:50 Helmet Cells Not Reportable 08/14/16 10:50 [place] Bodies Not Reportable 08/14/16 10:50 [place] Rings Not Reportable 08/14/16 10:50 [place] Cells Not Reportable 08/14/16 10:50 Bite Cells Not Reportable 08/14/16 10:50 Crenated Cell Not Reportable 08/14/16 10:50 Elliptocytes Not Reportable 08/14/16 10:50 Acanthocytes (Spur) Not Reportable 08/14/16 10:50 Rouleaux Not Reportable 08/14/16 10:50 Hemoglobin C Crystals Not Reportable 08/14/16 10:50 Schistocytes Not Reportable 08/14/16 10:50 Malaria parasites Not Reportable 08/14/16 10:50 Denilson Bodies Not Reportable 08/14/16 10:50 Hem Pathologist Commnt No 08/14/16 10:50 Sodium 137 mmol/L (137-145) 08/20/16 04:31 Potassium 3.3 mmol/L (3.6-5.0) L 08/20/16 04:31 Chloride 98.2 mmol/L (98-107) 08/20/16 04:31 Carbon Dioxide 19 mmol/L (22-30) L 08/20/16 04:31 Anion Gap 23 mmol/L 08/20/16 04:31 BUN 7 mg/dL (9-20) L 08/20/16 04:31 Creatinine 0.4 mg/dL (0.8-1.5) L 08/20/16 04:31 Estimated GFR > 60 ml/min 08/20/16 04:31 BUN/Creatinine Ratio 17.50 % 08/20/16 04:31 Glucose 120 mg/dL (75-100) H 08/20/16 04:31 POC Glucose 124 (70-105) H 08/20/16 12:13 Lactic Acid 2.1 mmol/L (0.7-2.0) H* 08/14/16 16:48 Calcium 8.8 mg/dL (8.4-10.2) 08/20/16 04:31 Total Bilirubin 1.20 mg/dL (0.1-1.2) 08/20/16 04:31 AST 50 units/L (5-40) H 08/20/16 04:31 ALT 65 units/L (7-56) H 08/20/16 04:31 Alkaline Phosphatase 210 units/L (35-129) H 08/20/16 04:31 C-Reactive Protein 25.90 mg/dL (0.00-1.30) H 08/18/16 05:28 Total Protein 6.7 g/dL (6.3-8.2) 08/20/16 04:31 Albumin 3.0 g/dL (3.9-5) L 08/20/16 04:31 Albumin/Globulin Ratio 0.8 % 08/20/16 04:31 Triglycerides 103 mg/dL (2-149) 08/18/16 00:06 Lipase 44 units/L (13-60) 08/20/16 04:31 Urine Color Yellow (Yellow) 08/14/16 13:32 Urine Turbidity Clear (Clear) 08/14/16 13:32 Urine pH 5.0 (5.0-7.0) 08/14/16 13:32 Ur Specific [place] 1.059 (1.003-1.030) H 08/14/16 13:32 Urine Protein <15 mg/dl mg/dL (Negative) 08/14/16 13:32 Urine Glucose (UA) >=500 mg/dL (Negative) 08/14/16 13:32 Urine Ketones 20 mg/dL (Negative) 08/14/16 13:32 Urine Blood Neg (Negative) 08/14/16 13:32 Urine Nitrite Neg (Negative) 08/14/16 13:32 Urine Bilirubin Neg (Negative) 08/14/16 13:32 Urine Urobilinogen < 2.0 mg/dL (<2.0) 08/14/16 13:32 Ur Leukocyte Esterase Neg (Negative) 08/14/16 13:32 Urine WBC (Auto) < 1.0 /HPF (0.0-6.0) 08/14/16 13:32 Urine RBC (Auto) 4.0 /HPF (0.0-6.0) 08/14/16 13:32 U Epithel Cells (Auto) 1.0 /HPF (0-13.0) 08/14/16 13:32 Urine Mucus Few /HPF 08/14/16 13:32 MOUNIKA Screen Negative (Negative) 08/16/16 06:37 Microbiology 08/14/16 12:23 Peripheral/Venous Blood Culture - Final NO GROWTH AFTER 5 DAYS 08/14/16 12:23 Peripheral/Venous Blood Culture - Final NO GROWTH AFTER 5 DAYS - Imaging and Cardiology Chest x-ray: image reviewed (no rib fracture, small pleural effusion noted.)
--- NOTE | 2016-08-20 17:15 | Progress Note ---
Assessment and Plan 1. Pancreatitis - etiology unclear. GB ultrasound negative. Pt denies significant EtOH. CT shows fluid in abd and in pleural space, and ongoing inflammation. Due to elevated LFTs, MRCP done which showed no obstruction. - if tiarra clears, and labs stable, low fat diet in AM. If worsens, may need to make NPO and give TPN. - pt encouraged to breath deep to prevent atelectasis, and to ambulate Subjective Date of service: 08/20/16 Interval history: Pt has ongoing LUQ pain, worse with deep breath. Objective - Constitutional Vitals: Vital Signs - 12hr 08/20/16 08/20/16 08/20/16 05:29 05:59 07:20 Temperature 97.9 F Pulse Rate [ 86 Right Radial] Respiratory 17 18 16 Rate Blood Pressure 127/85 [Right Arm] O2 Sat by Pulse 97 Oximetry General appearance: Present: mild distress - EENT Eyes: PERRL, EOM intact ENT: hearing intact - Respiratory Respiratory effort: labored - Gastrointestinal General gastrointestinal: Present: soft, tender (mild shanta in LUQ), normal bowel sounds - Labs CBC & Chem 7: 08/20/16 04:31 08/20/16 04:31 Labs: Abnormal lab results 08/19/16 08/19/16 08/20/16 Range/Units 16:28 21:25 00:41 WBC 12.6 H (4.5-11.0) K/mm3 MCHC 35 H (32-34) % RDW 12.9 L (13.2-15.2) % Lymph % (Auto) 11.1 L (13.4-35.0) % [place] % (Auto) 10.9 H (0.0-7.3) % [place] # 1.4 H (0.0-0.8) K/mm3 Seg Neutrophils % 76.4 H (40.0-70.0) % Seg Neutrophils # 9.6 H (1.8-7.7) K/mm3 Potassium (3.6-5.0) mmol/L Carbon Dioxide (22-30) mmol/L BUN (9-20) mg/dL Creatinine (0.8-1.5) mg/dL Glucose (75-100) mg/dL POC Glucose 146 H 126 H (70-105) AST (5-40) units/L ALT (7-56) units/L Alkaline Phosphatase (35-129) units/L Albumin (3.9-5) g/dL 08/20/16 08/20/16 08/20/16 Range/Units 04:31 04:31 06:01 WBC 13.2 H (4.5-11.0) K/mm3 MCHC (32-34) % RDW (13.2-15.2) % Lymph % (Auto) (13.4-35.0) % [place] % (Auto) (0.0-7.3) % [place] # (0.0-0.8) K/mm3 Seg Neutrophils % (40.0-70.0) % Seg Neutrophils # (1.8-7.7) K/mm3 Potassium 3.3 L (3.6-5.0) mmol/L Carbon Dioxide 19 L (22-30) mmol/L BUN 7 L (9-20) mg/dL Creatinine 0.4 L (0.8-1.5) mg/dL Glucose 120 H (75-100) mg/dL POC Glucose 126 H (70-105) AST 50 H (5-40) units/L ALT 65 H (7-56) units/L Alkaline Phosphatase 210 H (35-129) units/L Albumin 3.0 L (3.9-5) g/dL 08/20/16 Range/Units 12:13 WBC (4.5-11.0) K/mm3 MCHC (32-34) % RDW (13.2-15.2) % Lymph % (Auto) (13.4-35.0) % [place] % (Auto) (0.0-7.3) % [place] # (0.0-0.8) K/mm3 Seg Neutrophils % (40.0-70.0) % Seg Neutrophils # (1.8-7.7) K/mm3 Potassium (3.6-5.0) mmol/L Carbon Dioxide (22-30) mmol/L BUN (9-20) mg/dL Creatinine (0.8-1.5) mg/dL Glucose (75-100) mg/dL POC Glucose 124 H (70-105) AST (5-40) units/L ALT (7-56) units/L Alkaline Phosphatase (35-129) units/L Albumin (3.9-5) g/dL
--- NOTE | 2016-08-20 17:57 | Magnetic Resonance Report ---
FINAL REPORT EXAM: MR ABDOMEN MRCP HISTORY: abdominal pain, hepatitis TECHNIQUE: MRI abdomen without contrast MRCP PRIORS: Correlation made prior CT abdomen and pelvis August 19, 2016 FINDINGS: Demonstrated are bilateral pleural effusions greater on the left than on the right No focal signal abnormality is identified within the liver parenchyma. The common bile duct is normal in diameter with a smooth tapered appearance distally. There is no evidence for intrahepatic biliary dilatation. No filling defects are observed. Gallbladder does not appear distended. No pericholecystic fluid seen. No filling defects identified within the lumen of the gallbladder. Pancreatic duct is mildly prominent in appears narrowed centrally at the body of the pancreas There is peripancreatic strandy increased T2 signal consistent with findings of pancreatitis as described on recent CT. Kidneys demonstrate no focal signal abnormality. IMPRESSION: No evidence for cholelithiasis or biliary obstruction Findings consistent with pancreatitis. Mild prominence of the pancreatic duct. There is focal narrowing centrally which could reflect stricture.
[2016-08-20] MEDS: ZESTRIL PO SCH (22:06)
[2016-08-20] MEDS: ZOCOR PO SCH (22:07)
[2016-08-20] MEDS: LOVENOX SUB-Q SCH (22:07)
[2016-08-21] MEDS: MORPHINE IV PRN ×2 (02:54→13:11)
[2016-08-21] MEDS: ZOSYN/NS 4.5GM/100ML 4.5 GM/100 ML VIAL IV SCH ×2 (05:30→11:54)
[2016-08-21 06:50] LABS: Hemoglobin 12.1 gm/dl (11.8-15.2); Mean Corpuscular HGB Conc 34 % (32-34); Mean Corpuscular Hemoglobin 31 pg (28-32); Mean Corpuscular Volume 92 fl (84-94); Platelet Count 269 K/mm3 (140-440); Red Blood Count 3.93 M/mm3 (3.65-5.03); Red Cell Distribution Width 13.1 % (13.2-15.2); White Blood Count 12.3 K/mm3 (4.5-11.0)
[2016-08-21 07:17] LABS: Alanine Aminotransferase 47 units/L (7-56); Albumin/Globulin Ratio 0.9 %; Alkaline Phosphatase 196 units/L (35-129); Anion Gap 21 mmol/L; Blood Urea Nitrogen 6 mg/dL (9-20); Calcium 8.4 mg/dL (8.4-10.2); Carbon Dioxide 24 mmol/L (22-30); Chloride 97.9 mmol/L (98-107); Glucose 139 mg/dL (75-100); Potassium 3.4 mmol/L (3.6-5.0); Sodium 139 mmol/L (137-145); Total Protein 6.5 g/dL (6.3-8.2)
--- NOTE | 2016-08-21 07:43 | Discharge Summary ---
Providers - Providers Date of Admission: 08/14/16 13:24 Date of discharge: 08/21/16 Attending physician: BRIDGET FONTENOT MD 08/15/16 09:58 Consult to Physician [CONS] Routine Consulting Provider: GENTRY SORIANO Reason For Exam: pancreatitis Place consult to:: DR. SORIANO Notified:: OFFICE Phone number called:: [phone] Was contact made?: Yes If yes, spoke with:: NIKUNJ Time called:: 10:10 Comment:: MURPHY NOTIFIED Primary care physician: BINDERY CHIEF Hospitalization Reason for admission: abdominal pain Condition: Stable Hospital course: Patient is 41-year-old man with a history of tobacco dependency and diabetes mellitus who presented with abdominal pain with nausea vomiting. CT abdomen and pelvis with contrast showed pancreatitis. Patient was placed on nothing by mouth status and pain control GI was consulted after extensive review patient was also noted to have right flank pain. Imaging studies did not reveal any rib fracture but did show some small pleural effusion. Not amenable to thoracentesis. Patient also was noted to have retroperitoneal fluid likely secondary to pancreatitis. Etiology of pancreatitis was not clearly visible S patient denies alcohol use. In any case he was placed on low fat diet with improvement. I did have extensive discussion with the patient also echo in the discussion GI had with the family patient should remain on low fat diet. Have a repeat CT scan in 2 weeks. I discussed risk of pancreatitis and also to monitor if any evidence of infection develops. His clinical condition and this time as improved. He is tolerating some diet although not all but not due to pain patient states due to the taste of the food from here. MRCP was obtained and did not show any obstruction. Discharge diagnosis * Acute pancreatitis of unknown etiology * Left costochondral tenderness * Tobacco dependency * SIRS secondary to acute pancreatitis no evidence of infection or sepsis. * Hypokalemia * Type 2 diabetes mellitus * Constipation-now resolved * Moderate protein calorie malnutrition * Small pleural effusion with noted retroperitoneal fluid Disposition: DISCHARGED TO HOME OR SELFCARE Time spent for discharge: 35 mins Core Measure Documentation - Palliative Care Palliative Care/ Comfort Measures: Not Applicable - Core Measures Any of the following diagnoses?: none - VTE Discharge Requirements Deep Vein Thrombosis/Pulmonary Embolism Present on Admission: No Exam - Physical Exam Narrative exam: VITAL SIGNS: Reviewed. GENERAL: The patient appeared well nourished and normally developed. Vital signs as documented. HEAD: No signs of head trauma. EYES: Pupils are equal. Extraocular motions intact. EARS: Hearing grossly intact. MOUTH: Oropharynx is normal. NECK: No adenopathy, no JVD. CHEST: Chest with breath sounds left lower lobe, pleuritic pain noted. No wheezes, rales, or rhonchi. CARDIAC: Regular rate and rhythm. S1 and S2, without murmurs, gallops, or rubs. VASCULAR: No Edema. Peripheral pulses normal and equal in all extremities. ABDOMEN: Soft, left upper quadrant and flank tenderness. No discrete epigastric tenderness. No sign of distention. No rebound or guarding, and no masses palpated. Bowel Sounds normal. MUSCULOSKELETAL: Good range of motion of all major joints. Extremities without clubbing, cyanosis or edema. NEUROLOGIC EXAM: Alert and oriented x 3. No focal sensory or strength deficits. Speech normal. Follows commands. PSYCHIATRIC: Mood normal. SKIN: Tattoos - Constitutional Vitals: Temp Pulse Resp BP Pulse Ox 98.1 F 90 18 119/72 96 08/21/16 00:00 08/21/16 00:00 08/21/16 03:24 08/21/16 00:00 08/21/16 00:00 Plan Activity: advance as tolerated, fall precautions Diet: low fat Special Instructions: record daily weights, record daily BP diary, smoking cessation Additional Instructions: Needs Repeat CT scan in 2 weeks. This can be done outpatient by PCP Follow up with: PRIMARY CAREMD [Primary Care Provider] - 3-5 Days ANATOLIY KOROMA MD [Staff Physician] - 7 Days Forms: Work/School Release Form Prescriptions: oxyCODONE /ACETAMINOPHEN [Percocet 5/325] 1 tab PO Q4HR PRN #30 tab PRN Reason: Pain , Severe (7-10)
[2016-08-21] MEDS ORDERED: K-DUR PO ONE (08:00)
[2016-08-21] MEDS: FLORANEX PO SCH (08:59)
[2016-08-21] MEDS: PROTONIX PO SCH (08:59)
[2016-08-21] MEDS: SODIUM BICARBONATE PO SCH (09:00)
[2016-08-21 09:38] VITALS: BP 123/87
[2016-08-21] MEDS: NACL 0.9% IV SCH (13:11)
== END 2016-08-21 15:20 | disposition home or self-care (01) | DRG 439 ==
LOC: ED 10:19 → 3A 13:24
PROVIDERS: ADMIT Internal Medicine; ATTEND Internal Medicine
DX: K85.90 Acute pancreatitis without necrosis or infection, unspecified (principal); R65.10 Systemic inflammatory response syndrome (SIRS) of non-infectious origin without acute organ dysfunction; J90 Pleural effusion, not elsewhere classified; E44.0 Moderate protein-calorie malnutrition; E11.9 Type 2 diabetes mellitus without complications; K57.90 Diverticulosis of intestine, part unspecified, without perforation or abscess without bleeding; F17.200 Nicotine dependence, unspecified, uncomplicated; I10 Essential (primary) hypertension; F10.10 Alcohol abuse, uncomplicated; K59.00 Constipation, unspecified; E87.6 Hypokalemia; Z83.3 Family history of diabetes mellitus; Z82.49 Family history of ischemic heart disease and other diseases of the circulatory system; Z68.26 Body mass index [BMI] 26.0-26.9, adult
CPT/HCPCS: 36415; 74020; 74177; 74181; 76705; 80048; 80053; 81001; 82140; 82962; 83690; 84478; 85007; 85025; 85027; 86038; 86140; 87040; 96361; 96374; 96375; 99406; C9113; J1170; J1650; J2270; J2405; J2543; J3370; J7030; Q9967

== ENCOUNTER 2016-09-09 09:56 | Outpatient (CLI) | payer OTHER ==
--- NOTE | 2016-09-09 10:19 | XRay Report ---
Chest 2 views: Compared to 08/20/16. Findings: Normal cardiomediastinal silhouette. Trachea is midline. No consolidation, pneumothorax or pleural effusion. Impression: No acute cardiopulmonary findings.
== END 2016-09-09 09:57 | disposition home or self-care (01) ==
LOC: XRAY 09:56
PROVIDERS: ATTEND Family Medicine
DX: J90 Pleural effusion, not elsewhere classified (principal)
CPT/HCPCS: 71020

== ENCOUNTER 2016-10-07 08:36 | Outpatient (CLI) | payer OTHER ==
[2016-10-07] MEDS ORDERED: NACL ONE (15:17)
--- NOTE | 2016-10-08 10:49 | Cat Scan Report ---
CT ABDOMEN WITHOUT AND WITH CONTRAST: 10/07/16 08:36:00 CLINICAL: Acute pancreatitis. COMPARISON: 08/19/16 CT and 08/20/16 MRCP TECHNIQUE: Volumetric acquisition and 1.25 millimeter scan reconstructions without contrast and after the uneventful intravenous injection of 100 cc Omnipaque 300. Consent was obtained prior to the administration of contrast. Oral contrast was also given. FINDINGS: A well-defined pancreatic tail pseudocyst has developed since prior exams and measures approximately 7.8 x 5.2 x 8.6 cm. It has a well-defined smooth thin wall measuring 3-4 mm in thickness. The pseudocyst is contiguous to the left anterior renal fascia. Several additional smaller pancreatic fluid collections are less well defined with less well-defined allen. An anterior fluid collection in the proximal body has an irregular shape and measures 4.2 x 3.5 cm. A fluid collection posterior to the body and fundus of the stomach extends to the pancreatic tail and measures approximately 2.3 cm in maximum thickness. Inflammatory changes and free peripancreatic fluid have resolved . No abscess or hemorrhage. Normal liver, gallbladder and bile ducts. Normal stomach and duodenum. Normal spleen, adrenal glands and kidneys. Normal aorta and inferior vena cava. The imaged portions of small bowel and colon are normal. An appendix is not identified. Bone windows demonstrate no suspicious bone lesion. IMPRESSION:1. Pseudocyst formation with a dominant 9 cm pancreatic tail pseudocyst. Several additional smaller less well defined pancreatic fluid collections are probably developing pseudocysts with less well developed allen. These may or may not communicate. 2. Resolution of pancreatic and peripancreatic inflammatory changes. 3. No hemorrhage or abscess. 4. Normal biliary tract. The
== END 2016-10-07 08:37 | disposition home or self-care (01) ==
LOC: CT 08:36
PROVIDERS: ATTEND Family Medicine
DX: K85.90 Acute pancreatitis without necrosis or infection, unspecified (principal); E11.9 Type 2 diabetes mellitus without complications; Z87.891 Personal history of nicotine dependence
CPT/HCPCS: 74170; Q9967